=== PATIENT | female | born 1990 | race Caucasian/White ===

== ENCOUNTER 2022-05-19 14:09 | Emergency (ER) | payer BC, SELFPAY ==
[2022-05-19 14:26] VITALS: BP 118/87; PULSE 71; RESP 16; TEMP 36.6; O2SAT 97; BMI 34.8
--- NOTE | 2022-05-19 14:43 | ED.GENADULT ---
HPI - General Adult General Chief complaint: Jaw Injury/Pain Stated complaint: Post op jaw/throat pain Time Seen by Provider: 05/19/22 14:15 History of Present Illness HPI narrative: This 31-year-old female comes in with worsening dental pain in the left lower row. She had a tooth extracted 5 days ago and states that she was feeling better until yesterday. She wonders if there might be an infection. She states that she did not sleep well last night. She does not report any fevers. She has plans to follow-up with her dentist tomorrow. She took hydrocodone and ibuprofen without much relief today. Related Data Home Medications Medication Instructions Recorded Confirmed hydrocodone 5 mg-acetaminophen 325 tab 05/19/22 mg tablet Previous Rx's Medication Instructions Recorded amoxicillin 500 mg capsule 500 mg PO TID 10 days #30 caps 05/19/22 ketorolac 10 mg tablet 10 mg PO Q8H 5 days #15 tabs 05/19/22 tramadol 50 mg tablet 50 mg PO Q6H PRN pain #20 tabs 05/19/22 Allergies Allergy/AdvReac Type Severity Reaction Status Date / Time aspertame Allergy Severe nervous Uncoded 05/19/22 14:31 system reaction Review of Systems Status of ROS: Reports: 10 or more systems reviewed and unremarkable except as noted in History and below Narrative: Constitutional: No fevers, no weight gain or loss. Eyes: No discharge. No vision changes. HENT: No congestion, no sore throat. Left lower row dental pain that radiates to her left ear. Cardiovascular: No chest pain, no palpitations. Respiratory: No shortness of breath, no wheezes, no cough. Gastrointestinal: No abdominal pain, no vomiting, no diarrhea. Genitourinary: No dysuria, no hematuria. Musculoskeletal: Normal range of motion. Skin: No rashes, no pruritis. Neurological: No dizziness, weakness, sensory change, speech change. Endo/Heme/Allergies: No bruising or bleeding. No polydipsia. Pysch: no suicidality, no anxiety, no insomnia. All other systems reviewed and are negative. Exam Narrative: Exam Narrative: Constitutional: Well-developed, well-nourished, no acute distress. HEENT: Normocephalic, atraumatic. Left lower molar is extracted with no sign of bleeding or infection. Neck: Normal range of motion. Nontender. Supple. Heart: Intact distal pulses. Lungs: No chest discomfort. No wheezes, rhonchi, or rales. Abdomen: Nontender. Back: Normal range of motion. Extremities: Normal range of motion. No injury. Skin: Intact. No rash. Warm. No erythema or pallor. Neurologic: No altered sensation. No weakness. Alert and oriented. Psychiatric: No suicidality. No anxiety or depression. No insomnia. Nursing notes and vitals signs are reviewed. Const: Vital Signs, click to edit/add: Vital Signs - 24 hr 05/19/22 14:26 Temperature 97.8 F Pulse Rate [Left P ulse Oximeter] 71 Respiratory Rate 16 Blood Pressure [Ri ght Upper Arm] 118/87 Pulse Oximetry 97 Oxygen Delivery Me thod Room Air Course Vital Signs Vital signs: Initial Vital Signs Temperature 97.8 F 05/19/22 14:26 Temperature Source Temporal Artery Scan 05/19/22 14:26 Pulse Rate 71 05/19/22 14:26 Pulse Rhythm 05/19/22 14:26 Pulse Strength 3+ Normal 05/19/22 14:26 Respiratory Rate 16 05/19/22 14:26 Blood Pressure 118/87 05/19/22 14:26 Blood Pressure Mean 97 05/19/22 14:26 Blood Pressure Position Sitting 05/19/22 14:26 Pulse Oximetry 97 05/19/22 14:26 Oxygen Delivery Method 05/19/22 14:26 Vital Signs Temperature 97.8 F 05/19/22 14:26 Pulse Rate 71 05/19/22 14:26 Respiratory Rate 16 05/19/22 14:26 Blood Pressure 118/87 05/19/22 14:26 Pulse Oximetry 97 05/19/22 14:26 Oxygen Delivery Method 05/19/22 14:26 Temperature 97.8 F 05/19/22 14:26 Pulse Rate 71 05/19/22 14:26 Respiratory Rate 16 05/19/22 14:26 Blood Pressure 118/87 05/19/22 14:26 Pulse Oximetry 97 05/19/22 14:26 Oxygen Delivery Method 05/19/22 14:26 Medical Decision Making MDM Narrative Medical decision making narrative: This patient comes in with worsening dental pain after having an extraction 5 days ago. She states that she felt rather well and till around last evening and now her pain is not adequately controlled. I do not see sign of any abscess or infection however this is a possibility. I did prescribe amoxicillin for her along with some Toradol and tramadol. She also received an intramuscular injection of Toradol 30 mg. Discharge Plan Discharge Clinical Impression: Pain, dental Patient Disposition: Home, Self-Care Condition: Unchanged Instructions: Toothache (ED) Additional Instructions: Follow-up with dentist as soon as possible. Take medications as needed and indicated. Prescriptions: New amoxicillin 500 mg capsule 500 mg PO TID 10 Days Qty: 30 0RF tramadol 50 mg tablet 50 mg PO Q6H PRN (Reason: pain) Qty: 20 0RF ketorolac 10 mg tablet 10 mg PO Q8H 5 Days Qty: 15 0RF No Action hydrocodone-acetaminophen 5-325 mg tablet Label Comments: TAKE 1 TABLET BY MOUTH EVERY 6 HOURS FOR PAIN Follow Up/Referrals: Simba Black MD [Primary Care Provider] - Stand Alone Forms: [employer] Info Instructions
[2022-05-19] MEDS: KETOROLAC 30 MG/ML inj IM (14:57)
== END 2022-05-19 15:06 | disposition home or self-care (01) ==
PROVIDERS: Emergency Provider Emergency Medicine Emergency Medical Services; PCP Surgery
DX: R68.84 Jaw pain (principal)
CPT/HCPCS: 96372; 99283; 99284; J1885

== ENCOUNTER 2022-06-04 12:56 | Emergency (ER) | payer BC, SELFPAY ==
[2022-06-04 13:31] VITALS: BP 103/71; PULSE 91; RESP 16; TEMP 36.6; O2SAT 97; BMI 34.8
--- NOTE | 2022-06-04 16:08 | CRLHL7_ITS ---
For Patients: As a result of the Century Cures Act, medical imaging exams and procedure reports are released immediately into your electronic medical record. You may view this report before your referring provider. If you have questions, please contact your health care provider. INDICATION: Weakness COMPARISON: None TECHNIQUE: CT examination of the head was performed as axial sections without intravenous contrast. Images were obtained from the vertex of the skull through the skull base. Please note that all CT scans at this facility use dose modulation, iterative reconstruction, and/or weight-based dosing when appropriate to reduce radiation dose to as low as reasonably achievable. FINDINGS: The brain shows no sign of mass lesion, mass effect, hemorrhage, or edema. The ventricles and sulci are normal in appearance for the patient`s age. The visualized portions of the orbits are normal in appearance. The osseous structures are normal in their appearance with no sign of abnormality in the skull base or calvarium. IMPRESSION: Normal unenhanced head CT. Please note that all CT scans at this facility use dose modulation, iterative reconstruction, and/or weight-based dosing when appropriate to reduce radiation dose to as low as reasonably achievable. Dictated by Peng Goodman MD @ 06/04/2022 4:48:15 PM (Electronically Signed)
--- NOTE | 2022-06-04 16:08 | CRLHL7_ITS ---
For Patients: As a result of the Century Cures Act, medical imaging exams and procedure reports are released immediately into your electronic medical record. You may view this report before your referring provider. If you have questions, please contact your health care provider. INDICATION: Weakness COMPARISON: None TECHNIQUE: CT examination of the cervical spine is performed without contrast using spiral technique. Thin axial, sagittal and coronal reconstructions were made. Please note that all CT scans at this facility use dose modulation, iterative reconstruction, and/or weight-based dosing when appropriate to reduce radiation dose to as low as reasonably achievable. FINDINGS: : There is straightening of the spine which is usually due to muscle spasm, positioning or an immobilization device. The height of the vertebral bodies is normal. There is no narrowing of the intervertebral disc spaces. No appreciable facet or uncovertebral joint osteoarthritis. No significant visible disc disease though the mid and lower 3rd of the spine are poorly evaluated due to streak artifact and beam attenuation artifact from soft tissues. For ongoing concern about weakness related to the cervical spine, consider MRI. IMPRESSION: Straightening. No visible acute process. Please review the comment. Please note that all CT scans at this facility use dose modulation, iterative reconstruction, and/or weight-based dosing when appropriate to reduce radiation dose to as low as reasonably achievable. Dictated by Peng Goodman MD @ 06/04/2022 4:51:09 PM (Electronically Signed)
--- NOTE | 2022-06-04 16:09 | ED.NEUROSD ---
HPI - Neuro Symptoms/Deficit General Chief Complaint: Neuro Symptoms/Altered Deficit Stated Complaint: Right arm numb Time Seen by Provider: 06/04/22 16:18 History of Present Illness HPI Narrative: Pt is a 31 year old woman who presents with intermitant numbness and weakness in her right hand. This appears to be positional as she has been waking up with her entire right arm asleep for the past few weeks.This morning she was unable to get oly right arm moving for several minutes and now she has only 4/5 strength in the right hand. No specifiic fingers are weaker to her than others and she has had no fevers, chills or night sweats. Pt is currently working 4 jobs and admitts to a significant amount of stress in her life. She states that while answering the phone her arm often goes numb. No trauma. Symptoms generally resolve after a few minutes but today she feels more week in the right arm. Pain is minimal. No overt neck pain or headache. No other related symptoms. OTC meds not helpful. No history of chronic neck issues or nerve entrapment. Related Data Home Medications Medication Instructions Recorded Confirmed albuterol 90 mcg/actuation aerosol mcg inhalation .2 puff PRN 06/04/22 inhaler Allergies Allergy/AdvReac Type Severity Reaction Status Date / Time aspertame Allergy Severe nervous Uncoded 05/19/22 14:31 system reaction Review of Systems Status of ROS: Reports: 10 or more systems reviewed and unremarkable except as noted in History and below [facility] Medical History (Updated 06/04/22 @ 17:19 by Gareth Sharma MD) Active asthma Social History Smoking Status: Unknown if ever smoked Do you use any of these nicotine containing products: None Second hand tobacco smoke exposure: No How often do you have a drink containing alcohol: never How often do you have six or more drinks on one occasion: Never AUDIT-C Alcohol total score: 0 Non-prescribed substance use: denies use service: No Exam Narrative: Exam Narrative: EXAM GENERAL: Patient appears comfortable and well. EYES: No scleral icterus. THYROID: no thyroid nodules or thyromegaly. LYMPH: No supraclavicular or cervical lymphadenopathy. SKIN: Visible skin seen during exam normal or with benign process only. EXT: No dependent lower extremity pedal edema. HEART: Regular rate and rhythm with no murmurs, rubs, or gallops. LUNGS: Clear to auscultation bilaterally with no crackles or wheezes. ABD: Soft, non tender, non distended. PSYCH: Good eye contact, speech is not pressured. Neuro: CN 2-12 intact with no focal defects other than diffuse 4/5 strength in the right hand and arm. Refelexes intact no wrist drop. No numbness seen on exam Const: Vital Signs, click to edit/add: Vital Signs - 24 hr 06/04/22 13:31 Temperature 97.9 F Pulse Rate [Right Pulse Oximeter] 91 Respiratory Rate 16 Blood Pressure [Ri ght Upper Arm] 103/71 Pulse Oximetry 97 Oxygen Delivery Me thod Room Air Course Course Hospital Course: I believe pt has a nerve impingement. CT of head and cervical spine ordered. Considered CT angio head and neck but will forgo for now as diagnostic yield is likely low and symptoms not acute. Reevaluation(s) Reevaluation #1: Pt unchanged. Pt's CT's normal of head and neck. Exam unchanged. Time: 17:13 Vital Signs Vital signs: Initial Vital Signs Temperature 97.9 F 06/04/22 13:31 Temperature Source Temporal Artery Scan 06/04/22 13:31 Pulse Rate 91 06/04/22 13:31 Pulse Rhythm 06/04/22 13:31 Respiratory Rate 16 06/04/22 13:31 Blood Pressure 103/71 06/04/22 13:31 Blood Pressure Mean 81 06/04/22 13:31 Blood Pressure Position Sitting 06/04/22 13:31 Pulse Oximetry 97 06/04/22 13:31 Oxygen Delivery Method 06/04/22 13:31 Vital Signs Temperature 97.9 F 06/04/22 13:31 Pulse Rate 91 06/04/22 13:31 Respiratory Rate 16 06/04/22 13:31 Blood Pressure 103/71 06/04/22 13:31 Pulse Oximetry 97 06/04/22 13:31 Oxygen Delivery Method 06/04/22 13:31 Temperature 97.9 F 06/04/22 13:31 Pulse Rate 91 06/04/22 13:31 Respiratory Rate 16 06/04/22 13:31 Blood Pressure 103/71 06/04/22 13:31 Pulse Oximetry 97 06/04/22 13:31 Oxygen Delivery Method 06/04/22 13:31 MDM - Neuro Symptoms/Deficit MDM Narrative Medical decision making narrative: Pt presents with positional weakness, tingling and occasional dyscomfort of the right arm for the past several weeks. No [employer] symptoms. No other neurological findings. Imaging normal. No alarm systems and no fever. Pt has nerve impingement on exam and will be treated with Prednisone, Tylenol and PCP follow for possble PT/MRI Differential Diagnosis Differential diagnosis: Likely carpal tunnel syndrome, subarachnoid hemorrhage, peripheral neuropathy, cerebrovascular accident, multiple sclerosis and transient cerebral ischemia Discharge Plan Discharge Clinical Impression: Cervical radiculopathy Condition: Stable Instructions: Cervical Radiculopathy (ED) Additional Instructions: Prednisone as directed Tylenol Rest Follow up with Primary Physician Activity Level: Activity as Tolerated Discharge Diet: Regular Prescriptions: No Action albuterol 90 mcg/actuation aerosol inhalation .2 puff PRN Follow Up/Referrals: Simba Black MD [Primary Care Provider] - Stand Alone Forms: [employer] Info Instructions
== END 2022-06-04 17:27 | disposition home or self-care (01) ==
PROVIDERS: Emergency Provider Internal Medicine; PCP Surgery
DX: M54.12 Radiculopathy, cervical region (principal)
CPT/HCPCS: 70450; 72125; 99284

== ENCOUNTER 2022-11-19 08:30 | Emergency (ER) | payer BC, SELFPAY ==
[2022-11-19 08:40] VITALS: BP 114/70; PULSE 102; RESP 16; TEMP 36.5; O2SAT 99; BMI 34.8
--- NOTE | 2022-11-19 08:47 | CRLHL7_ITS ---
For Patients: As a result of the Cures Act, medical imaging exams and procedure reports are released immediately into your electronic medical record. You may view this report before your referring provider. If you have questions, please contact your health care provider. INDICATION: 31 year-old female. Crush injury this morning. Pain. COMPARISON: None. TECHNIQUE: Two views of the right femur from the hip to the knee. FINDINGS: The bones are anatomically aligned. There is no evidence of fracture, erosion or intrinsic bone lesion. The soft tissues appear normal. IMPRESSION: Negative right femur. Dictated by Amaury Montemayor MD @ 11/19/2022 9:46:58 AM (Electronically Signed)
--- NOTE | 2022-11-19 10:12 | ED_ITS ---
HPI - General Adult General Date Seen: 11/19/22 Chief complaint: Extremity Pain/Injury, Lower Stated complaint: Right leg injury Time Seen by Provider: 11/19/22 08:40 Source: patient Mode of arrival: ambulatory Limitations: no limitations History of Present Illness HPI narrative: Patient is a 31-year-old woman who is here for evaluation of a work related injury. She says her leg was caught between a Pallet and for cleft around 2:00 a.m. this morning. She says if she stands on it carefully she does not have pain but sometimes when she puts weight on it she has pain in her thigh and she want to make sure that she did not have a broken bone. She thinks is probably just bruised muscles. She has not noted significant swelling, no bruising. It is somewhat sore to touch. She also would like a note to be off of work today. Related Data Home Medications Medication Instructions Recorded Confirmed albuterol 90 mcg/actuation aerosol mcg inhalation .2 puff PRN 06/04/22 inhaler lorazepam 1 mg tablet mg 11/19/22 prednisone 10 mg tablet mg 11/19/22 Allergies Allergy/AdvReac Type Severity Reaction Status Date / Time aspertame Allergy Severe nervous Uncoded 05/19/22 14:31 system reaction Review of Systems Status of ROS: Reports: 6 or more systems reviewed and unremarkable except as noted in History and below [facility] Medical History Active asthma Social History Smoking Status: Current every day smoker Do you use any of these nicotine containing products: None Second hand tobacco smoke exposure: No How often do you have a drink containing alcohol: never How often do you have six or more drinks on one occasion: Never AUDIT-C Alcohol total score: 0 Non-prescribed substance use: denies use service: No Exam Narrative: Exam Narrative: Vital signs reviewed In general, an alert, nontoxic woman. She is sitting comfortably in the bed. Extremities: Examination of the right lower extremity shows no visible trauma. She has some tenderness to palpation of the thigh diffusely. There is no bruising, erythema, or swelling noted. She is able to range the right knee completely albeit slowly. There is no effusion. She has full range of motion of the hip. She was ambulatory. Distal CMS is normal. Compartments are soft. Skin: Warm and dry, well perfused, intact. Const: Vital Signs, click to edit/add: Vital Signs - 24 hr 11/19/22 08:40 Temperature 97.7 F Pulse Rate [Left P ulse Oximeter] 102 H Respiratory Rate 16 Blood Pressure [Le ft Upper Arm] 114/70 Pulse Oximetry 99 Oxygen Delivery Me thod Room Air Course Course Hospital Course: I did do x-rays of the right femur which by my review are negative for fracture or dislocation. Final radiology report is of a negative right femur. Discussed that her injuries are likely more muscular contusion. Would recommend ibuprofen and Tylenol, ice as needed. I did give her note to be off of work today to rest. Return tomorrow. Anticipate that this will improve over the next several days to week, primary care follow-up if not improving in that time frame. For severe pain, significant swelling or bruising, return for re-evaluation. Vital Signs Vital signs: Initial Vital Signs Temperature 97.7 F 11/19/22 08:40 Temperature Source Temporal Artery Scan 11/19/22 08:40 Pulse Rate 102 H 11/19/22 08:40 Pulse Rhythm 11/19/22 08:40 Pulse Strength 3+ Normal 11/19/22 08:40 Respiratory Rate 16 11/19/22 08:40 Blood Pressure 114/70 11/19/22 08:40 Blood Pressure Mean 84 11/19/22 08:40 Blood Pressure Position Sitting 11/19/22 08:40 Pulse Oximetry 99 11/19/22 08:40 Oxygen Delivery Method 11/19/22 08:40 Vital Signs Temperature 97.7 F 11/19/22 08:40 Pulse Rate 102 H 11/19/22 08:40 Respiratory Rate 16 11/19/22 08:40 Blood Pressure 114/70 11/19/22 08:40 Pulse Oximetry 99 11/19/22 08:40 Oxygen Delivery Method 11/19/22 08:40 Temperature 97.7 F 11/19/22 08:40 Pulse Rate 102 H 11/19/22 08:40 Respiratory Rate 16 11/19/22 08:40 Blood Pressure 114/70 11/19/22 08:40 Pulse Oximetry 99 11/19/22 08:40 Oxygen Delivery Method 11/19/22 08:40 Discharge Plan Discharge Clinical Impression: Injury of right thigh Patient Disposition: Home, Self-Care Condition: Stable Instructions: Crush Injury (ED) Additional Instructions: Ibuprofen 400 mg plus Tylenol 1000 mg 3 times daily as needed for pain. Ice. Off work today to rest. Symptoms should improve over the next week. See primary care if not improving in that time frame. If you have worsening or severe pain, significant swelling or bruising, return for re-evaluation. Prescriptions: No Action albuterol 90 mcg/actuation aerosol inhalation .2 puff PRN prednisone 10 mg tablet lorazepam 1 mg tablet Label Comments: TAKE ONE-HALF TABLET BY MOUTH 30 MINUTES PRIOR TO EMG. CAN TAKE 2ND HALF JUST PRIOR TO EMG IF NOT GROGGY Follow Up/Referrals: Simba Black MD [Primary Care Provider] - Stand Alone Forms: [employer] Info Instructions
== END 2022-11-19 09:45 | disposition home or self-care (01) ==
PROVIDERS: Emergency Provider Emergency Medicine; PCP Surgery
DX: S79.921A Unspecified injury of right thigh, initial encounter (principal); W23.1XXA Caught, crushed, jammed, or pinched between stationary objects, initial encounter; Y99.0 Civilian activity done for income or pay
CPT/HCPCS: 73552; 99283

== ENCOUNTER 2022-11-28 14:00 | Outpatient (RCR) | payer BC, SELFPAY | END 2023-04-10 23:59 | disposition home or self-care (01) | PROVIDERS: PCP Surgery; Visit Provider Family Medicine | DX: M54.2 Cervicalgia (principal); M79.601 Pain in right arm; M54.9 Dorsalgia, unspecified; Z51.89 Encounter for other specified aftercare | CPT/HCPCS: 97012; 97110; 97140; 97162 ==

== ENCOUNTER 2023-01-23 08:54 | Emergency (ER) | payer BC, SELFPAY ==
[2023-01-23 09:02] VITALS: BP 111/67; PULSE 69; RESP 18; TEMP 36.6; O2SAT 98; BMI 36.0
--- NOTE | 2023-01-23 09:15 | ED.ABDPAIN ---
HPI - Abdominal Pain General Time Seen by Provider: 09:16 Date Seen: 01/23/23 Chief Complaint: Abdominal Pain Stated Complaint: sharp pain in lower abdomen, 5 weeks Time Seen by Provider: 01/23/23 09:15 Source: patient and RN notes reviewed Mode of arrival: ambulatory Limitations: no limitations History of Present Illness HPI narrative: Patient is a 32-year-old female coming in with abdominal pain. She states her last menstrual period was December 12, she calculates she has about 5 and half weeks . She has had no vaginal discharge or bleeding. Yesterday morning she started having some dull aching in the right lower quadrant, worsens with movement or bending over and is felt as a sharp stabbing. With rest she feels better. She has not taken any Tylenol, she tries to minimize medication use particularly early in . She is most comfortable resting. She has maybe noticed some increased urination but no dysuria. She has been trying to drink more since she found out she was . This would be her 5th , her 1st 2 children were pre term deliveries. She has had no abdominal surgeries. There is no change with eating. No fevers, no nausea vomiting or diarrhea. MD elicited complaint: abdominal pain Onset (ago): day(s) (started yesterday morning) Pain Consistency: intermittent Location: RLQ Quality: stabbing (With movement) and aching Radiation: none Exacerbating factors: movement Relieving factors: rest Related Data Date of last menstrual period: 01/23/23 Patient : Yes Home Medications Medication Instructions Recorded Confirmed albuterol 90 mcg/actuation aerosol 1 mcg inhalation .2 puff PRN 06/04/22 01/23/23 inhaler vit no.95-ferrous 1 tab PO DAILY 01/23/23 01/23/23 fumarate 28 mg-folic acid 800 mcg tablet () Allergies Allergy/AdvReac Type Severity Reaction Status Date / Time aspertame Allergy Severe nervous Uncoded 05/19/22 14:31 system reaction Review of Systems Status of ROS Reports: 6 or more systems reviewed and unremarkable except as noted in History and below [facility] Medical History Active asthma Social History Smoking Status: Former smoker What tobacco products do you use: cigarettes Smoking quit date/years: <= 15 years ago Do you use any of these nicotine containing products: None Second hand tobacco smoke exposure: No How often do you have a drink containing alcohol: never How often do you have six or more drinks on one occasion: Never AUDIT-C Alcohol total score: 0 Non-prescribed substance use: denies use service: No Exam Const: Vital Signs, click to edit/add: Vital Signs - 24 hr 01/23/23 09:02 01/23/23 11:21 01/23/23 13:25 Temperature 97.9 F 98.4 F 98.0 F Pulse Rate [Pulse Oximeter] 69 61 64 Respiratory Rate 18 16 16 Blood Pressure [Ri ght Upper Arm] 111/67 102/68 110/69 Pulse Oximetry 98 98 97 Oxygen Delivery Me thod Room Air Room Air Room Air Documenting provider has reviewed patient's vital signs: yes Common normals: no apparent distress, average body habitus, oriented x3, no limitations, healthy appearing and alert General appearance: cooperative, comfortable (While lying in the ER bed), well kempt and well developed HENMT: Common normals: normocephalic, head/scalp atraumatic, hearing grossly normal bilaterally and external nose normal Head and scalp: normocephalic and atraumatic Nose: external nose normal Mouth: lip normal Eye: Common normals: PERRL, EOMs intact bilaterally, conjunctivae normal and no scleral icterus Conjunctiva: conjunctiva(e) normal Pupil: PERRL Neck & C-Spine: Common normals: full ROM, no lymphadenopathy, supple, no meningeal signs, no JVD and thyroid normal Thyroid: thyroid normal Resp: Common normals: normal respiratory effort, no retractions, no use of accessory muscles and clear to auscultation bilaterally Auscultation: clear to auscultation bilaterally Cardio: Common normals: no JVD, regular rate, regular rhythm, S1 normal heart sound, S2 normal heart sound, no gallops, no clicks and no murmurs Rate: regular rate Rhythm: regular rhythm Heart sounds: S1 normal and S2 normal GI: Common normals: Normal to inspection, nondistended, normoactive bowel sounds present, soft to palpation, no hepatosplenomegaly and no masses Palpation: soft and no hepatosplenomegaly Other: Does have mild right lower quadrant tenderness without any true rebound or guarding. Back & Pelvis: Common normals: thoracic and lumbar spine normal to inspection Extremity: Common normals: normal to inspection Neuro: Common normals: oriented x3 Sensorium/orientation: alert Meningeal signs: no meningeal signs Psych: Appearance: well kempt Course Course Hospital Course: Patient will have a pelvic ultrasound to start. We reviewed need to confirm intrauterine , rule out ectopic . It is possible this could be an atypical presentation of such things as appendicitis. We will see what can be visualized on the ultrasound. Will also get a full complement of labs. Patient does not want anything for pain management at this time. She did bring up if everything is normal, she wondered if she could have a note to just rest the remainder of the week and stay home. I do think we certainly can consider that. She has her initial OB appointment coming up in 2 weeks time. She is scheduled to have an ultrasound at that time. She obviously will be having 1 today but may still need follow-up ultrasound if symptomatic. Reevaluation(s) Reevaluation #1: Reviewed with patient her MRI showing a normal appendix. Will give her note to be out of work for the remainder of the week, discharged to home for further outpatient follow-up. Time: 13:53 Consultations Consultation #1: Reviewed with our surgeon Dr. Brewer. We will do a lab add on for a CRP, obtain MRI of her abdomen. Have conferred with the radiologist Dr. Delgado and a plain noncontrast MRI of her abdomen should be sufficient. Patient has been informed of the plan for the MRI of her abdomen to further delineate whether or not there might be appendicitis. She is aware that there is an intrauterine which is very reassuring. Time: 11:28 Vital Signs Vital signs: Initial Vital Signs Temperature 97.9 F 01/23/23 09:02 Temperature Source Temporal Artery Scan 01/23/23 09:02 Pulse Rate 69 01/23/23 09:02 Respiratory Rate 18 01/23/23 09:02 Blood Pressure 111/67 01/23/23 09:02 Blood Pressure Mean 81 01/23/23 09:02 Blood Pressure Position Sitting 01/23/23 09:02 Pulse Oximetry 98 01/23/23 09:02 Oxygen Delivery Method Room Air 01/23/23 09:02 Vital Signs Temperature 97.9 F 01/23/23 09:02 Pulse Rate 69 01/23/23 09:02 Respiratory Rate 18 01/23/23 09:02 Blood Pressure 111/67 01/23/23 09:02 Pulse Oximetry 98 01/23/23 09:02 Oxygen Delivery Method Room Air 01/23/23 09:02 Temperature 98.0 F 01/23/23 13:25 Pulse Rate 64 01/23/23 13:25 Respiratory Rate 16 01/23/23 13:25 Blood Pressure 110/69 01/23/23 13:25 Pulse Oximetry 97 01/23/23 13:25 Oxygen Delivery Method Room Air 01/23/23 13:25 MDM - Abdominal Pain Differential Diagnosis Differential diagnosis: Likely abdominal pain and acute appendicitis Lab Data Attestation: I reviewed the patient's lab results. Labs: Lab Results 01/23/23 01/23/23 Range/Units 09:43 09:45 WBC 6.12 (4.50-11.00) K/uL RBC 4.23 (4.00-5.20) m/uL Hgb 12.7 (12.0-16.0) gm/dL Hct 38.1 (33.0-51.0) % MCV 90 (80-100) fL MCH 30 (26-34) pg MCHC 33 (32-36) gm/dL RDW Coeff of Ant 12.3 (11.5-15.5) % Plt Count 197 (140-440) K/uL Neut % (Auto) 65.1 (42.0-72.0) % Lymph % (Auto) 26.1 (20-44) % Nelson % (Auto) 7.0 (0.0-11.0) % Eos % (Auto) 1.3 (0.0-7.0) % Baso % (Auto) 0.5 (0.0-3.0) % Neut # (Auto) 3.98 (1.7-7.0) K/uL Lymph # (Auto) 1.60 (0.90-2.90) K/uL Nelson # (Auto) 0.40 (0.00-0.90) K/UL Eos # (Auto) 0.08 (0.00-0.50) K/uL Baso # (Auto) 0.03 (0.00-0.30) K/uL Sodium 135 (135-149) mmol/L Potassium 4.0 (3.6-5.1) mmol/L Chloride 107 (96-114) mmol/L Carbon Dioxide 23 (20-32) mmol/L BUN 11 (5-24) mg/dL Creatinine 0.5 (0.5-1.5) mg/dL Estimated Creat Clear 127.76 Estimated GFR 128 ml/min Glucose 92 (60-115) mg/dL Lactate 0.7 (0.5-1.9) mmol/L Calcium 8.6 (8.4-10.6) mg/dL Total Bilirubin 0.4 (0.1-1.5) mg/dL AST 34 (12-35) U/L ALT 46 H (4-35) U/L Alkaline Phosphatase 64 (40-150) U/L C-Reactive Protein 0.7 (0.5-1.0) mg/dL Total Protein 6.9 (6.0-8.3) g/dL Albumin 3.9 (3.3-5.0) g/dL HCG, Quant 37597.00 mIU/mL Urine Color Yellow (Yellow) Urine Appearance Clear (Clear) Urine pH 8.0 (5.0-8.5) Ur Specific Roggen 1.015 (1.000-1.030) Urine Protein Negative (Negative) Urine Glucose (UA) Negative (Negative) Urine Ketones Negative (Negative) Urine Blood Negative (Negative) Urine Nitrite Negative (Negative) Urine Bilirubin Negative (Negative) Urine Urobilinogen 0.2 (0.2-1.0) Ur Leukocyte Esterase Negative (Negative) Urine RBC 0-2 (0-2) Urine WBC 0-2 (0-5) Ur Squamous Epith Cells Few (None-Few) Urine Bacteria Few A (None) Imaging Data US pelvis: Attestation: I have reviewed the pertinent imaging results. Radiologist's impression: Patient: DENISE ROMERO Facility:?[facility] Patient ID:?[id number] Site Patient ID:?[id number]. Site :?[id number] Study:?US OB Pelvis-01/23/2023 10:30:38 AM Ordering Physician:Sho Andrews Final Report: Indication: Right lower quadrant abdominal pain Technique: Sonography the gravid uterus was performed. The study was performed transabdominally and transvaginally. Comparison: None Findings: There is a single live intrauterine . The crown rump length measurement is 3 millimeters corresponding to 6 weeks and 0 days. The estimated date of delivery is 09/18/2023. heart rate is 103 beats per minute which is considered normal for a 3 millimeter pole. The gestational sac appears normal at 1.4 centimeters. A normal appearing yolk sac is noted at 3 millimeters. The ovaries are normal in size. The right ovary measures 3.6 x 2.1 x 2.2 centimeters and the left ovary measures 3.2 x 1.2 x 1.9 centimeters. There is a corpus luteum cyst of on the right. Informally, the technologist states that there may be marginal visualization of a segment of the appendix measuring 7 millimeters. If this is confirmed, greater than 6 millimeters is abnormal. Recommend a formal study of the right lower quadrant for further formal evaluation Impression: 1. There is a single live intrauterine gestation at 6 weeks and 0 days with an estimated date of delivery of 09/18/2023. No visible complication of the . 2. Questionable marginal visualization of an abnormal appendix. Recommend a formal study of the right lower quadrant for further formal evaluation Dictated by Peng Goodman MD @ 01/23/2023 10:49:09 AM (Electronic Signature) MRI - abdomen: Attestation: I have reviewed the pertinent imaging results. Radiologist's impression: Patient: DENISE ROMERO Facility:?[facility] Patient ID:?[id number] Site Patient ID:?[id number]. Site :?[id number] Study:?MRI Pelvis W/O PREG APPY-01/23/2023 12:27:28 PM Ordering Physician:?Digna Andrews Final Report: Indication: Right lower quadrant pain, patient. Technique: Multisequence multiplanar MRI of the abdomen and pelvis without IV contrast. Comparison: None. Findings: Appendix is normal in caliber. No periappendiceal inflammatory changes. Visualized portions of the inferior liver parenchyma are unremarkable. The gallbladder and visualized portions of the pancreas, inferior spleen, and adrenal glands are unremarkable. No hydronephrosis of the kidneys bilaterally. No retroperitoneal lymphadenopathy. Visualized bowel is not dilated, no evidence of bowel obstruction. No significant ascites. Bladder is unremarkable for degree of distension. Small intrauterine cystic structure, compatible with a gestational sac. pole is not visualized by MRI. Trace pelvic free fluid. No lymphadenopathy. No suspicious aggressive appearing focal osseous lesion is identified. Impression: 1. Normal appendix. No evidence of acute appendicitis. 2. Small intrauterine cystic structure, compatible with a gestational sac. pole is not visualized by MRI at this time. Trace pelvic free fluid. Dictated by Clifton Aguayo MD @ 01/23/2023 1:29:08 PM (Electronic Signature) Critical Care Time Critical Care Time Critical Care Time: No Discharge Plan Discharge Clinical Impression: Abdominal pain, right lower quadrant, Intrauterine Patient Disposition: Home, Self-Care Condition: Stable Instructions: at 7 to 10 Weeks (ED) Additional Instructions: Keep upcoming obstetrical appointment. Recommend rest, activities as tolerated. You certainly can use Tylenol if needed for some discomfort. If you have significant increasing your abdominal pain, develops fever, any vaginal leaking bleeding or vomiting, do need to be re-evaluated. Prescriptions: No Action PNV cmb#95-ferrous fumarate-FA [] 28 mg iron- 800 mcg tablet 1 tab PO DAILY albuterol 90 mcg/actuation aerosol 1 mcg inhalation .2 puff PRN Follow Up/Referrals: Simba Black MD [Primary Care Provider] - Stand Alone Forms: [employer] Info Instructions
--- NOTE | 2023-01-23 09:21 | CRLHL7_ITS ---
For Patients: As a result of the Century Cures Act, medical imaging exams and procedure reports are released immediately into your electronic medical record. You may view this report before your referring provider. If you have questions, please contact your health care provider. Indication: Right lower quadrant abdominal pain Technique: Sonography the gravid uterus was performed. The study was performed transabdominally and transvaginally. Comparison: None Findings: There is a single live intrauterine . The crown rump length measurement is 3 millimeters corresponding to 6 weeks and 0 days. The estimated date of delivery is 09/18/2023. heart rate is 103 beats per minute which is considered normal for a 3 millimeter pole. The gestational sac appears normal at 1.4 centimeters. A normal appearing yolk sac is noted at 3 millimeters. The ovaries are normal in size. The right ovary measures 3.6 x 2.1 x 2.2 centimeters and the left ovary measures 3.2 x 1.2 x 1.9 centimeters. There is a corpus luteum cyst of on the right. Informally, the technologist states that there may be marginal visualization of a segment of the appendix measuring 7 millimeters. If this is confirmed, greater than 6 millimeters is abnormal. Recommend a formal study of the right lower quadrant for further formal evaluation Impression: 1. There is a single live intrauterine gestation at 6 weeks and 0 days with an estimated date of delivery of 09/18/2023. No visible complication of the . 2. Questionable marginal visualization of an abnormal appendix. Recommend a formal study of the right lower quadrant for further formal evaluation Dictated by Peng Goodman MD @ 01/23/2023 10:49:09 AM (Electronically Signed)
[2023-01-23 09:47] LABS: Lactate* 0.7 mmol/L (0.5-1.9)
[2023-01-23 09:48] LABS: Basophils Absolute Auto 0.03 K/uL (0.00-0.30); Basophils Percent Auto 0.5 % (0.0-3.0); Eosinophils Absolute Auto 0.08 K/uL (0.00-0.50); Eosinophils Percent Auto 1.3 % (0.0-7.0); Hematocrit 38.1 % (33.0-51.0); Hemoglobin* 12.7 gm/dL (12.0-16.0); Lymphocytes Percent Auto 26.1 % (20-44); Mean Corpuscular HGB Conc 33 gm/dL (32-36); Mean Corpuscular Hemoglobin 30 pg (26-34); Mean Corpuscular Volume 90 fL (80-100); Neutrophils Absolute Auto 3.98 K/uL (1.7-7.0); Neutrophils Percent Auto 65.1 % (42.0-72.0); Platelet Count* 197 K/uL (140-440); RDW Coefficient of Variation % 12.3 % (11.5-15.5); Red Blood Count 4.23 m/uL (4.00-5.20); White Blood Count* 6.12 K/uL (4.50-11.00)
[2023-01-23 09:54] LABS: Slide Review Reflex No
[2023-01-23 10:05] LABS: Appearance Urine Clear (Clear); Bilirubin Urine Negative (Negative); Blood Urine Negative (Negative); Color Urine Yellow (Yellow); Glucose Urine Negative (Negative); Ketones Urine Negative (Negative); Leukocyte Esterase Urine Negative (Negative); Nitrite Urine Negative (Negative); Protein Urine Negative (Negative); Specific Gravity Urine 1.015 (1.000-1.030); Urobilinogen Urine 0.2 (0.2-1.0)
[2023-01-23 10:06] LABS: Albumin* 3.9 g/dL (3.3-5.0); Chloride* 107 mmol/L (96-114); Sodium* 135 mmol/L (135-149)
[2023-01-23 10:08] LABS: Bilirubin Total* 0.4 mg/dL (0.1-1.5); Creatinine* 0.5 mg/dL (0.5-1.5); Est. Creatinine Clearance* 127.76; Estimated Glomerular Filt Rate 128 ml/min
[2023-01-23 10:09] LABS: Alanine Aminotransferase* 46 U/L (4-35); Alkaline Phosphatase* 64 U/L (40-150); Aspartate Amino Transferase* 34 U/L (12-35); Blood Urea Nitrogen* 11 mg/dL (5-24); Calcium* 8.6 mg/dL (8.4-10.6); Carbon Dioxide* 23 mmol/L (20-32); Glucose* 92 mg/dL (60-115); Total Protein* 6.9 g/dL (6.0-8.3)
[2023-01-23 10:26] LABS: Bacteria Urine Few; RBC Urine 0-2 (0-2); Squamous Epithelial Cell Urine Few (None-Few); WBC Urine 0-2 (0-5)
[2023-01-23 11:21] VITALS: BP 102/68; PULSE 61; RESP 16; TEMP 36.9; O2SAT 98
--- NOTE | 2023-01-23 11:30 | CRLHL7_ITS ---
For Patients: As a result of the Cures Act, medical imaging exams and procedure reports are released immediately into your electronic medical record. You may view this report before your referring provider. If you have questions, please contact your health care provider. Indication: Right lower quadrant pain, patient. Technique: Multisequence multiplanar MRI of the abdomen and pelvis without IV contrast. Comparison: None. Findings: Appendix is normal in caliber. No periappendiceal inflammatory changes. Visualized portions of the inferior liver parenchyma are unremarkable. The gallbladder and visualized portions of the pancreas, inferior spleen, and adrenal glands are unremarkable. No hydronephrosis of the kidneys bilaterally. No retroperitoneal lymphadenopathy. Visualized bowel is not dilated, no evidence of bowel obstruction. No significant ascites. Bladder is unremarkable for degree of distension. Small intrauterine cystic structure, compatible with a gestational sac. pole is not visualized by MRI. Trace pelvic free fluid. No lymphadenopathy. No suspicious aggressive appearing focal osseous lesion is identified. Impression: 1. Normal appendix. No evidence of acute appendicitis. 2. Small intrauterine cystic structure, compatible with a gestational sac. pole is not visualized by MRI at this time. Trace pelvic free fluid. Dictated by Clifton Aguayo MD @ 01/23/2023 1:29:08 PM (Electronically Signed)
[2023-01-23 11:44] LABS: C Reactive Protein* 0.7 mg/dL (0.5-1.0)
[2023-01-23 13:25] VITALS: BP 110/69; PULSE 64; RESP 16; TEMP 36.7; O2SAT 97
== END 2023-01-23 14:05 | disposition home or self-care (01) ==
PROVIDERS: Emergency Provider Family Medicine; PCP Surgery
DX: R10.31 Right lower quadrant pain (principal); Z33.1 Pregnant state, incidental
CPT/HCPCS: 36415; 74181; 76817; 76857; 80053; 81001; 83605; 84702; 85025; 86140; 87086; 99284; 99285

== ENCOUNTER 2023-08-20 20:10 | Outpatient (CLI) | payer BC, SELFPAY ==
[2023-08-20 21:06] VITALS: BP 110/60; PULSE 99
[2023-08-20 21:07] LABS: Appearance Urine Slightly Cloudy (Clear); Bilirubin Urine Negative (Negative); Blood Urine Negative (Negative); Color Urine Yellow (Yellow); Glucose Urine Negative (Negative); Ketones Urine Negative (Negative); Leukocyte Esterase Urine Trace (Negative); Nitrite Urine Negative (Negative); Protein Urine Negative (Negative); Urobilinogen Urine 0.2 (0.2-1.0); pH Urine 6.5 (5.0-8.5)
[2023-08-20 21:11] VITALS: RESP 16; TEMP 36.7
[2023-08-20 21:53] LABS: Clue Cells <20% Clue Cells Seen (None Seen); Trichomonas No Trichomonas Seen (None Seen); Yeast No Yeast Seen (None Seen)
[2023-08-20 22:01] LABS: Amorphous Sediment Urine Few; Bacteria Urine Few; Squamous Epithelial Cell Urine Few (None-Few)
[2023-08-20 22:02] LABS: Mucus Urine Few
--- NOTE | 2023-08-20 22:33 | PC.OBNST ---
NST Note NST Note Start: 08/20/23 20:19 Freq: ONCE Status: Active Protocol: Document 08/20/23 22:31 BARNEY (Rec: 08/20/23 22:33 BARNEY [id number]) NST Note 5 Para (# of births) 4 EDC 09/21/23 Gestational Age In Weeks & Days 35 Weeks & 3 Days High Risk Factors Diabetes - Preexisting Type I Insulin Patient Presented with Complaint(s) of Pain If Pain, describe location vaginal pressure Reactive Yes Appropriate for Gestational Age Yes RADHA Perry RNC Date 08/20/23 Reactive Yes Appropriate for Gestational Age Yes RADHA Castillo RNC Date 08/20/23 OB NST charge Yes Complete NST Note via Write Note Yes The provider's electronic signature indicates the NST is reactive/appropriate for gestational age. *Note to provider: If an addendum is required, open the patient's chart and click on the note under the Nurse/Allied Health tab.
[2023-08-21 19:49] LABS: Strep B DNA Probe Positive (Negative)
[2023-08-21 19:50] LABS: Strep B Susceptibility Needed? No
== END 2023-08-20 22:40 | disposition home or self-care (01) ==
LOC: OB OUT 20:12 → OB 20:16
PROVIDERS: PCP Surgery; Visit Provider Family Medicine
DX: O24.313 Unspecified pre-existing diabetes mellitus in pregnancy, third trimester (principal); Z3A.35 35 weeks gestation of pregnancy
CPT/HCPCS: 59025; 81003; 81015; 87081; 87086; 87210; 87653; 99213

== ENCOUNTER 2023-09-09 19:32 | Inpatient (IN) | payer BC, SELFPAY ==
[2023-09-09 19:43] VITALS: BMI 44.8
[2023-09-09 19:59] VITALS: BP 118/76; PULSE 111; TEMP 36.7
[2023-09-09 20:00] VITALS: PULSE 207; O2SAT 97
[2023-09-09 20:35] LABS: Basophils Absolute Auto 0.02 K/uL (0.00-0.30); Basophils Percent Auto 0.2 % (0.0-3.0); Eosinophils Percent Auto 1.1 % (0.0-7.0); Hematocrit 33.7 % (33.0-51.0); Hemoglobin* 10.9 gm/dL (12.0-16.0); Immature Granulocytes Abs Auto 0.03 K/uL (0.00-0.30); Immature Granulocytes Pct Auto 0.3 %; Lymphocytes Percent Auto 16.9 % (20-44); Mean Corpuscular HGB Conc 32 gm/dL (32-36); Mean Corpuscular Hemoglobin 28 pg (26-34); Mean Corpuscular Volume 86 fL (80-100); Monocytes Percent Auto 5.7 % (0.0-11.0); Neutrophils Percent Auto 75.8 % (42.0-72.0); Platelet Count* 213 K/uL (140-440); RDW Coefficient of Variation % 13.5 % (11.5-15.5); Red Blood Count 3.91 m/uL (4.00-5.20)
[2023-09-09 20:36] LABS: Slide Review Reflex No
[2023-09-09] MEDS: miSOPROStoL 25 MCG/0.25 TABLET VAGINAL (21:02)
--- NOTE | 2023-09-09 22:18 | P.OBHP_ITS ---
OB - H&P: HPI Labor/Induction History of Present Illness Date Seen: 09/09/23 Chief Complaint: The patient is a 32 year old 5 para 4 at 38 weeks 2 days gestation by LMP and 1st trimester ultrasound, who presents for induction secondary to uncontrolled gestational diabetes. Chief complaint: Maternity : 5 Para: 4 Narrative: Shawanda Christopher is a 32 year old female here for induction. She has a history of delivery and was recommended to start vaginal progesterone early in but was not able to afford it. She was diagnosed with gestational diabetes in and was initially diet controlled but did require starting NPH insulin and increasing slowly. She was controlled for a couple weeks, monitoring blood sugars closely. However, she did have multiple episodes of vomiting and sweating overnight at 30 units of insulin. She reduced the dose and those symptoms resolved. Her blood sugars were not controlled at this point over the last 5 days. Fasting sugars were in the low 100s. Later sugars were generally in range but she did have an occasional sugar in the 180s. Perinatology was consulted and it was decided to induce for uncontrolled gestational diabetes. She did have a growth ultrasound at 35 weeks with estimated weight of 3061 g. She has been getting twice weekly NST/BPP that were all normal since 34 weeks when she started insulin. History of Present Dating criteria: based on LMP care: good care Ultrasounds: normal 1st trimester US and normal mid trimester US complications: gestational diabetes Labs Blood type: O (+) positive Rubella: immune RPR/VDLR: nonreactive GBS status: positive HBsAG: negative Review of Systems Status of ROS: Reports: 10 or more systems reviewed and unremarkable except as noted in History and below Meds Home Medications and Allergies Home Medications Medication Instructions Recorded Confirmed Type albuterol 90 mcg/actuation aerosol 1 mcg inhalation .2 puff PRN 06/04/22 09/09/23 History inhaler vit no.95-ferrous 1 tab PO DAILY 01/23/23 09/09/23 History fumarate 28 mg-folic acid 800 mcg tablet () blood sugar diagnostic (Contour 08/20/23 08/20/23 History Next Test Strips) blood-glucose meter (Contour Next 08/20/23 08/20/23 History One Meter) blood-glucose sensor (FreeStyle 08/20/23 08/20/23 History Evaristo 3 Sensor device) insulin NPH isoph U-100 human 100 unit subcut 08/20/23 History unit/mL subcutaneous suspension (Novolin N NPH U-100 Insulin isophane) insulin syringe-needle U-100 0.3 08/20/23 08/20/23 History mL 31 gauge x 5/16 lancets (Microlet Lancet) 08/20/23 08/20/23 History Allergies Allergy/AdvReac Type Severity Reaction Status Date / Time aspartame Allergy Severe Shuts Down Verified 09/09/23 21:01 Nervous System OB - H&P: Exam Physical Exam: Vital signs: Pulse BP Pulse Ox 111 H 118/76 97 09/09/23 19:59 09/09/23 19:59 09/09/23 20:00 Constitutional: Constitutional: no acute distress Routine Respiratory Exam: Respiratory: Present CTA bilaterally Routine Cardiovascular Exam: Cardiovascular: RRR Detailed Labor and Delivery Exam: Patient Gravid: Yes Dilation (cm): 0 Cervix position: posterior Consistency: medium Cervical ripeness score: 1 OB - Results Labs Labs: Short CBC 09/09/23 Range/Units 20:24 WBC 9.50 (4.50-11.00) K/uL Hgb 10.9 L (12.0-16.0) gm/dL Hct 33.7 (33.0-51.0) % Plt Count 213 (140-440) K/uL OB - Problem Based A/P Additional Plan (1) Gestational diabetes: Status: Acute (2) Positive GBS test: Status: Acute Plan Will induce for uncontrolled gestational diabetes. Dicsussed risks with mom of baby being born early. Discussed risks of shoulder dystocia. Discussed repeating growth ultrasound but since this showed 3000 g less than 3 weeks ago, it would be very unlikely to foreign exchange student coordinator today as primary would only be offered if EFW > 4500g. Patient desires to proceed with induction. Will do lower dose of NPH at 16 units tonight and then plan to start insulin drip to keep sugars in range during labor per protocol. GBS positive so will start ampicillin when labor starts. Expect transition to pitocin when cervix is favorable. Anticipate . Delivery/Labor/Induction Plan Plan: induction Induction method: per misoprostol protocol
[2023-09-09] MEDS: INSULIN NPH 100 UNIT/ML 16 UNIT SUBCUT (23:15)
[2023-09-10] VITALS (37 sets, daily range): BP systolic 107–172; BP diastolic 58–86; PULSE 68–116; RESP 16–18; TEMP 36.6–36.9; O2SAT 97–100
[2023-09-10] MEDS: miSOPROStoL 25 MCG/0.25 TABLET VAGINAL ×3 (00:59→09:00)
[2023-09-10] MEDS: INSULIN ASPART 100 UNIT/ML SUBCUT (01:31)
--- NOTE | 2023-09-10 08:13 | PM.OBPNL ---
Subjective Date Seen: 09/10/23 Narrative: 3 doses of Cytotec overnight. Not really feeling contractions yet. 1 sugar overnight out of range at 129. 2 units of Novolog given. Morning sugar has been in range. Objective Exam: Baby cephalic by Brenda. Vital Signs: Last Vital Signs Temp 98.3 F 09/10/23 05:08 Pulse 93 09/10/23 05:08 Resp 16 09/10/23 05:08 BP 115/63 09/10/23 05:08 Pulse Ox 97 09/09/23 20:00 Pelvic Exam Comments: Exam deferred until next Cytotec dose Contractions Monitor mode: External Contraction pattern: Absent Assessment Assessment: induction ongoing Status: Category l Heart Rate Baseline: 140 Manager It Training Variability: Moderate (6-25) Monitor Accelerations: Present Monitor Decelerations: None Plan Plan: Plan 2 more doses of Cytotec unless she goes into active labor. Can do a dose of Cervidil if no significant response at that time. Diabetic diet per protocol. Will treat any sugars out of range on an as needed basis. Continue induction for uncontrolled gestational diabetes.
[2023-09-10] MEDS: LACTATED RINGERS 1000 ML 1,000 ML 125 ML IV (13:23)
[2023-09-10] MEDS: AMPICILLIN 2 GM in 0.9 % SODIUM CHLORIDE Mini-bag 100 ML IVPB (13:25)
[2023-09-10] MEDS: ROPIVACAINE 0.2% 100 ml 100 ML 12 MG EPIDURAL (14:35)
[2023-09-10] MEDS: OXYTOCIN 30 unit/500 ML in NS 30 UNIT/500 ML BAG 300 UNIT IVPB (15:07)
--- NOTE | 2023-09-10 16:12 | W.PM.VAGDEL1 ---
Procedure Procedure Done: [facility] Global Procedure Details: 1st stage of labor: Patient admitted for induction for uncontrolled gestational diabetes. Cytotec per protocol for 4 doses given. Found to be 4 cm at 1342 and laura regularly prior to 5th dose. Ampicillin started for GBS positivity as soon as painful contractions started. Sugars were all in range during 1st stage of labor except 1 slightly high sugar of 129 overnight. 2 units of Novolog given. Strip was category 1 through the first stage of labor. She was found to be complete at 1454. She had SROM of clear fluid at that time. 2nd stage of labor: Patient began pushing at 1458. She delivered a liveborn male via the OA position at 1506. Nuchal cord x1 noted. Baby did cry just after delivery. Cord was clamped x2 and cut after 2 minutes. Baby brought to warmer for poor color but breathing ok. 3rd stage of labor: Placenta delivered spontaneously at 1530. It was found to be intact with a 3 vessel cord. Bleeding was minimal. No lacerations were noted. Baby and mom set up for routine cares. Events: GDMA2 Intrapartal Events: Labor Induction Delivery monitor: external FHT Route of delivery: Laceration description: None Estimated blood loss (mL): 100 Anesthesia type: Epidural Disposition: floor Infant Gender: Male presentation: vertex Placental Delivery Description: Spontaneous Cord Description: 3 Vessels, Nuchal Cord, Loose and Around Body x1
--- NOTE | 2023-09-10 17:20 | P.ANBPRC_ITS ---
[facility] Medical History History of abnormal cervical Pap smear ?Z87.42 - Personal history of other diseases of the female genital tract (ICD-10) History of gestational diabetes ?Z86.32 - Personal history of gestational diabetes (ICD-10) History of delivery ?Z87.51 - Personal history of pre-term labor (ICD-10) History of vaginal delivery Active asthma ?J45.909 - Unspecified asthma, uncomplicated (ICD-10) Surgical History History of wisdom tooth extraction ?K08.409 - Partial loss of teeth, unspecified cause, unspecified class (ICD- 10) History of colposcopy (04/22/09) ?Z98.890 - Other specified postprocedural states (ICD-10) Family History (Updated 08/05/23 @ 11:49 by Federica Ortega MD) Other Breast cancer Diabetes High blood pressure Social History (Updated 08/04/23 @ 14:53 by Elena Turner ~ [facility], CONSUMER SALES REPRESENTATIVE) What is your current living situation?: I presently have a place to live Problems where you live: no known problems In the past 12 months, utilities in danger of being shut off: no In past 12 months, lack of transportation kept you from medical appts, meetings, work, or getting things needed for daily living: no In the past 12 mos, have been you worried that your food would run out before you had money to buy more?: never true In the past 12 mos, the food you bought just didn't last and you didn't have money to buy more?: never true Smoking Status: Former smoker What tobacco products do you use: cigarettes Smoking quit date/years: <= 15 years ago Do you use any of these nicotine containing products: None Second hand tobacco smoke exposure: No How often do you have a drink containing alcohol: never How often do you have six or more drinks on one occasion: Never AUDIT-C Alcohol total score: 0 Non-prescribed substance use: denies use How often does anyone, including family, friends and others, physically hurt you : never How often does anyone, including family, friends and others, insult or talk down to you: never How often does anyone, including family, friends and others, threaten you with harm: never How often does anyone, including family, friends and others, scream or curse at you: never service: No Meds Home Medications and Allergies Home Medications Medication Instructions Recorded Confirmed Type albuterol 90 mcg/actuation aerosol 1 mcg inhalation .2 puff PRN 06/04/22 09/09/23 History inhaler vit no.95-ferrous 1 tab PO DAILY 01/23/23 09/09/23 History fumarate 28 mg-folic acid 800 mcg tablet () blood sugar diagnostic (Contour 08/20/23 08/20/23 History Next Test Strips) blood-glucose meter (Contour Next 08/20/23 08/20/23 History One Meter) blood-glucose sensor (FreeStyle 08/20/23 08/20/23 History Evaristo 3 Sensor device) insulin NPH isoph U-100 human 100 unit subcut 08/20/23 History unit/mL subcutaneous suspension (Novolin N NPH U-100 Insulin isophane) insulin syringe-needle U-100 0.3 08/20/23 08/20/23 History mL 31 gauge x 5/16 lancets (Microlet Lancet) 08/20/23 08/20/23 History Allergies Allergy/AdvReac Type Severity Reaction Status Date / Time aspartame Allergy Severe Shuts Down Verified 09/09/23 21:01 Nervous System Results Labs Labs: Laboratory Results - last 24 hr 09/09/23 20:24 WBC 9.50 RBC 3.91 L Hgb 10.9 L Hct 33.7 MCV 86 MCH 28 MCHC 32 RDW Coeff of Ant 13.5 Plt Count 213 Neut % (Auto) 75.8 H Lymph % (Auto) 16.9 L [place] % (Auto) 5.7 Eos % (Auto) 1.1 Baso % (Auto) 0.2 Neut # (Auto) 7.20 H Lymph # (Auto) 1.60 [place] # (Auto) 0.50 Eos # (Auto) 0.10 Baso # (Auto) 0.02 Abs Immat Gran (auto) 0.03 Imm/Tot Granulo (auto) 0.3 Blood Type O Positive Antibody Screen NEGATIVE Vital Signs Vital Signs: Last Vital Signs Temp 98 F 09/10/23 14:49 Pulse 89 09/10/23 17:14 Resp 17 09/10/23 14:49 BP 128/81 09/10/23 17:14 Pulse Ox 97 09/10/23 15:04 Weight: 111.13 kg Height: 157.48 cm Anesthesia Procedures Epidural Insertion Patient Location: OB Start Time: 14:15 Stop Time: 14:45 Start Date: 09/10/23 Stop Date: 09/10/23 Reason for Block: procedure for pain Patient Position: sitting Performed By: Siria Bernal Preanesthetic Checklist: IV checked, risks and benefits discussed, monitors and equipment checked, timeout performed and anesthesia consent Prep: chlorhexidine gluconate Monitoring: blood pressure monitoring, continuous pulse oximetry and heart rate Approach: midline Vertebral Space: lumbar (1-5) Epidural Technique: JENNIFER saline Needle Type: Tuohy needle Injection Technique: continuous catheter Needle gauge: 17 Needle Length (cm): 10 cm Needle Insertion Depth (cm): 8 Catheter Gauge: 19 Catheter Type: multi-orifice Catheter at skin depth (cm): 13 Test Dose Result: negative and lidocaine 1.5% with epinephrine 1 to 200,000
[2023-09-10] MEDS: IBUPROFEN 600 MG TABLET PO (20:27)
[2023-09-10] MEDS: ACETAMINOPHEN 500 MG TABLET 1000 MG PO (23:21)
[2023-09-10] MEDS: LACTATED RINGERS 1000 ML 1,000 ML 100 ML IV (23:26)
[2023-09-11] VITALS (15 sets, daily range): BP systolic 85–119; BP diastolic 49–83; PULSE 58–85; RESP 11–18; TEMP 36.2–36.8; O2SAT 94–98
[2023-09-11] MEDS: KETOROLAC 30 MG/ML inj IVP ×3 (01:22→21:53)
--- NOTE | 2023-09-11 06:26 | P.OBPN_ITS ---
OB - PN:Subj Subjective Time Seen by Provider: 06:26 Date Seen: 09/11/23 Patient comments OB post-: no complaints, pain well controlled and tolerating diet [place] infant status: bottle and (pumping) OB - PN: Obj Exam Physical Exam: Vital signs: Temp Pulse Resp BP Pulse Ox O2 Del Method 98.3 F 79 18 110/75 98 Room Air 09/11/23 03:27 09/11/23 03:27 09/11/23 03:27 09/11/23 03:27 09/11/23 03:27 09/11/23 03:27 Constitutional: Constitutional: no acute distress Routine HEENT Exam: Head: Present atraumatic and normocephalic Routine Respiratory Exam: Respiratory: Present CTA bilaterally Routine Cardiovascular Exam: Cardiovascular: Present RRR, S1 and S2; Absent murmur Routine Abdominal Exam: Abdominal: Present normal bowel sounds Fundus: Present firm Routine Neurological Exam: Neurological: Present alert and oriented X3 Routine Psychiatric Exam: Psychiatric: Present normal affect OB - PN: A/P Delivery Assessment and Plan (1) Gestational diabetes: Problem details: Fasting blood sugar on PPD 1 was 96 Status: Acute Assessment and Plan: - continue to monitor - will need A1c at 6 week check. (2) Positive GBS test: Problem details: Inadequate GBS abx, so staying for 48 hours to monitor baby. Status: Acute (3) (normal spontaneous vaginal delivery): Problem details: after IOL for GDM. Status: Acute Assessment and Plan: PPD 1, doing well. Pumping/bottling. (mostly formula at this time) Plan day: 1 Plan: routine care
[2023-09-11 07:44] LABS: Hemoglobin* 11.6 gm/dL (12.0-16.0)
[2023-09-11] MEDS: LACTATED RINGERS 1000 ML 1,000 ML 100 ML IV (09:25)
--- NOTE | 2023-09-11 12:41 | W.ANESCHARGE ---
Anesthesia Charges Start Date/Time Anesthesia Start Date: 09/11/23 Anesthesia Start Time: 12:05 Stop Date/Time Anesthesia Stop Date: 09/11/23 Anesthesia Stop Time: 13:11
[2023-09-11] MEDS: BUPIVACAINE 0.5 %/EPI 1:200K 30 ML INJECTION (12:50)
--- NOTE | 2023-09-11 13:07 | PM.GYNPRST ---
Procedure Pre-op/Post-op diagnoses: Pre-Op/Post-Op Diagnoses Operation Date: 09/11/23 12:45 <No data on this case meets the specified criteria> Procedure: Procedures Operation Date: 09/11/23 12:45 Actual Procedure Side Surgeon p Post Tubal Ligation Bilateral Theresa Becker MD Estimated blood loss (mL): 5 Anesthesia type: Spinal Complications: none Specimen: portion of right fallopian tube and portion of left fallopian tube Disposition: floor Narrative: Preoperative diagnosis: Shawanda is a 32 year-old 5 para 4014 with undesired fertility. Postoperative diagnosis: Same Procedure: bilateral salpingectomy. Anesthesia: Spinal and local Surgeon: Theresa Becker MD IV fluid: 500 mL Estimated blood loss: 5 mL Specimen: Bilateral fallopian tubes sent to pathology Findings: On exam under anesthesia the fundus was noted to be approximately 1 cm below the umbilicus. The uterus fallopian tubes and ovaries all appeared normal. Procedure: Shawanda was taken was taken to the operating room where spinal anesthesia was found to be adequate. She had voided immediately prior to being taken to the OR. She was placed in the dorsal supine position and prepped and draped in a normal sterile manner. 0.5% Marcaine was instilled in a horizontal manner, inferior to the umbilicus, 7 mL was used. The skin was then incised in a horizontal manner and the inferior aspect of the umbilicus. Approximately 3 cm length incision was made. This incision was carried sharply to the underlying layer of fascia. The fascia was grasped with 2 Allis clamps and incised in the midline with a scalpel. This incision was carried laterally with Aggarwal scissors. The peritoneum was identified and entered bluntly. No evidence of adhesions was identified. A small Cipriano-O self-retaining retractor was then placed. The left fallopian tube was brought to the incision, grasped with a [place] clamp, and followed to the fimbriated end of the fallopian tube. The hand-held LigaSure dissecting instrument was used to perform serial pedicles putting at the fimbriated end of the tube. The tube was then removed from the cornea. The pedicles were inspected and bipolar cautery used to obtain hemostasis. The right fallopian tube was then brought to the incision and removed in a similar manner. Again excellent hemostasis noted. The Cipriano-O retractor was then removed. The fascia was reapproximated using 0 Vicryl in a running manner. The subcutaneous tissue was irrigated with a small amount of saline and a subcutaneous layer closure was placed with 2-0 chromic. The skin was reapproximated using 4-0 Monocryl in a running subcuticular manner. Exophin skin adhesive was applied. Mepilex dressing was placed. The patient tolerated this procedure well. Sponge, lap and instrument counts were correct x2 at the end of the procedure. Debriefed performed and surgical specimen reviewed. The patient was taken to the recovery area in stable condition.
--- NOTE | 2023-09-11 13:13 | W.ANESCHARGE ---
Anesthesia Charges Start Date/Time Anesthesia Start Date: 09/11/23 Anesthesia Start Time: 12:05 Stop Date/Time Anesthesia Stop Date: 09/11/23 Anesthesia Stop Time: 13:11
--- NOTE | 2023-09-11 13:40 | PM.ANPOST ---
Post Anesthesia Note Post Anesthesia Note Patient seen: Inpatient Respiratory Status: adequate Cardiovascular Status: adequate Mental Status: baseline Pain: adequate Temp: baseline Anesthetic awareness: N/A Complications: none Follow care: none
--- NOTE | 2023-09-11 13:44 | SUR.PHASEI ---
patient met discharge criteria per anesthesia
[2023-09-11] MEDS: IBUPROFEN 600 MG TABLET PO (14:19)
[2023-09-11] MEDS: ACETAMINOPHEN 500 MG TABLET 1000 MG PO ×2 (15:35→23:50)
[2023-09-11] MEDS: OXYCODONE 5 MG TABLET PO ×2 (15:35→19:53)
[2023-09-12] MEDS: ACETAMINOPHEN 500 MG TABLET 1000 MG PO ×2 (06:15→11:48)
[2023-09-12] MEDS: IBUPROFEN 600 MG TABLET PO (06:58)
[2023-09-12] MEDS: OXYCODONE 5 MG TABLET PO ×2 (06:59→11:13)
[2023-09-12 07:59] VITALS: BP 122/84; PULSE 84; RESP 16; TEMP 36.6
--- NOTE | 2023-09-12 07:59 | P.DS_ITS ---
DS: Providers Provider Date Seen: 09/12/23 Date of admission: 09/09/23 19:32 Primary care physician: Simba Black MD Admitting Clinician: Simba Black MD Attending Physician on discharge: Simba Black MD Exam Narrative: Exam Narrative: Gen: laying comfortably in bed Heart: RRR, no murmurs Lungs: CTA b/l Abd: fundus firm; healing surgical incision with periumbilical pain with palpation Extremities: no swelling Const: Vital Signs, click to edit/add: Vital Signs - 24 hr 09/11/23 13:06 09/11/23 13:10 09/11/23 13:15 Temperature 97.2 F L 97.2 F L 97.2 F L Pulse Rate 76 85 79 Pulse Rate [Bilate ral Blood Pressure Cuff] Respiratory Rate 12 11 L 16 Blood Pressure 86/49 L 85/53 L 97/52 L Blood Pressure [Le ft Arm] Pulse Oximetry 94 96 97 Oxygen Delivery Me thod Room Air Room Air 09/11/23 13:20 09/11/23 13:25 09/11/23 13:30 Temperature 97.2 F L 97.2 F L 97.2 F L Pulse Rate 73 75 63 Pulse Rate [Bilate ral Blood Pressure Cuff] Respiratory Rate 14 15 14 Blood Pressure 99/52 L 103/57 L 99/61 Blood Pressure [Le ft Arm] Pulse Oximetry 97 96 97 Oxygen Delivery Me thod Room Air Room Air Room Air 09/11/23 13:35 09/11/23 13:56 09/11/23 14:12 Temperature 97.2 F L Pulse Rate 72 Pulse Rate [Bilate ral Blood Pressure Cuff] 58 L 60 Respiratory Rate 15 Blood Pressure 101/58 L Blood Pressure [Le ft Arm] 109/75 119/78 Pulse Oximetry 97 97 98 Oxygen Delivery Me thod Room Air Room Air Room Air 09/11/23 14:26 09/11/23 14:41 09/11/23 17:48 Temperature 97.9 F Pulse Rate Pulse Rate [Bilate ral Blood Pressure Cuff] 62 65 68 Respiratory Rate 16 Blood Pressure Blood Pressure [Le ft Arm] 114/75 119/83 107/68 Pulse Oximetry 98 97 97 Oxygen Delivery Me thod Room Air Room Air 09/11/23 23:42 Temperature 98.0 F Pulse Rate Pulse Rate [Bilate ral Blood Pressure Cuff] 60 Respiratory Rate 16 Blood Pressure Blood Pressure [Le ft Arm] 117/73 Pulse Oximetry 98 Oxygen Delivery Me thod Room Air OB - DS: Summary Hospital Course Hospital Course: The patient is a 32 year old G 5 P 4 admitted to the Center on 09/09/23 for IOL secondary to uncontrolled gestational diabetes. She had an uncomplicated vaginal delivery at 38.3 weeks gestation on 09/10/23. She delivered a viable male infant. Blood sugars have been stable post . She is pumping and bottle feeding breast milk and formula. Also had post- tubal on 09/11/23. Has been experiencing incisional pain from this, managing with PO analgesics including oxycodone. Peripartum Data Infant delivery method: Vaginal Laceration description: None Procedures: Procedures Operation Date: 09/11/23 12:45 Actual Procedure Side Surgeon p Post Tubal Ligation Bilateral Theresa Becker MD Procedures: tubal ligation/salpingectomy [place] Infant Gender: Male Discharge Plan: Home Status at Discharge Functional status at discharge: independent ambulation Time Spent with Patient Time attestation: Total time spent providing and/or coordinating discharge services: Time spent: Less than 30 minutes Discharge Plan Discharge Disposition: Home, Self-Care Date of Admission: 09/09/23 19:32 Attending Provider on Discharge: Karin Land Primary Care Provider: Simba Black Condition: Stable Anticipated Discharge Date/Time: 09/12/23 12:00 Discharge Medications: New acetaminophen 500 mg Tablet 1,000 mg PO Q6H PRNQty: 40 0RF ibuprofen 600 mg Tablet 600 mg PO Q6H PRNQty: 40 0RF oxycodone 5 mg Tablet 5 mg PO Q4H PRN (Reason: 4 OR GREATER ON PAIN SCALE) Qty: 10 0RF Continued PNV cmb#95-ferrous fumarate-FA [] 28 mg iron- 800 mcg tablet 1 tab PO DAILY albuterol 90 mcg/actuation aerosol 1 mcg inhalation .2 puff PRN Discontinued (DME) blood-glucose meter [Contour Next One Meter] Misc MISCELLANEOUS QID (DME) Contour Next Test Strips Strip MISCELLANEOUS QID (DME) lancets [Microlet Lancet] Misc MISCELLANEOUS QID Novolin N NPH U-100 Insulin 100 unit/mL suspension subcut (DME) insulin syringe-needle U-100 0.3 mL 31 gauge x 5/16 syringe MISCELLANEOUS Patient Comments: FOR USE WOITH INSULIN ONCE PER DAY AT BEDTIME (DME) FreeStyle Evaristo 3 Sensor Device MISCELLANEOUS Discharge Orders: Discharge Order (Routine); Ordered 09/12/23 Ordered By: Karin Land Patient Education: Tubal Ligation (DC), OB Vaginal/Bottle Feeding Follow Up Appointments: Simba Black MD [Primary Care Provider] - Forms: [facility] Info Instructions Discharge Comments: Schedule follow-up weight check at Center on Friday, 09/14.
[2023-09-12] MEDS: LIDOCAINE 5% PATCH 1 PATCH TRANSDERMA (09:49)
[2023-09-12] MEDS: DOCUSATE SODIUM 100 MG CAPSULE PO (09:55)
[2023-09-12 11:27] LABS: Hemoglobin* 11.5 gm/dL (12.0-16.0)
== END 2023-09-12 12:00 | disposition home or self-care (01) | DRG 541 ==
PROVIDERS: Obstetrics & Gynecology; Admitting Provider Surgery; PCP Surgery; Visit Provider Surgery
PROC: 0UT70ZZ Resection of Bilateral Fallopian Tubes, Open Approach (ICD-10-PCS; CPT 58605; principal; 2023-09-11 12:30)
DX: O24.424 Gestational diabetes mellitus in childbirth, insulin controlled (principal); Z3A.38 38 weeks gestation of pregnancy; Z37.0 Single live birth; O99.824 Streptococcus B carrier state complicating childbirth; Z30.2 Encounter for sterilization
CPT/HCPCS: 00851; 01967; 36415; 59200; 85018; 85025; 86850; 86900; 86901; A9270; J0290; J1100; J1885; J2371; J2405; J2704; J2795; J3010; J3490; J7120; S0020

== ENCOUNTER 2024-10-12 05:48 | Emergency (ER) | payer BC, SELFPAY ==
--- OUTSIDE RECORDS SUMMARY | 2024-10-12 05:50 | XMS_ITS | Continuity of Care Document ---
Author Name NwHIN User [facility] Address Unknown Organization Unknown Address Unknown Procedures FILTER APPLIED:Only known Procedures with Onset Date within the last 5 years Procedure Date Procedure Provider Lashonda kern Information Status HEMOGLOBIN (44413) Compl eted ANESTH TUBAL LIGATION (98493) Completed INSERT CERVICAL DILATOR (07914) Completed NEURAXL LBR ANES VAG DLVR (93509) Completed ROUTINE VENIPUNCTURE (44697) Completed BLOOD TYPING SEROLOGIC ABO (26228) Completed RBC ANTIBODY SCREEN (47055) Completed BLOOD TYPING SEROLOGIC RH(D) (03106) Completed COMPLETE CBC W/AUTO DIFF WBC (61800) Completed OFFICE O/P EST LOW 20 MIN (06296) Completed STREP B DNA AMP PROBE (62559) Completed CULTURE SCREEN ONLY (40637) Completed URINE CULTURE/COLONY COUNT (64430) Completed NON-STRESS TEST (20316) Completed SMEAR WET [place] SALINE/INK (10641) Completed URINALYSIS AUTO W/O SCOPE (83188) Completed MICROSCOPIC EXAM OF URINE (04240) Completed X-RAY EXAM OF FEMUR 2/> (47496) Completed EMERGENCY DEPT VISIT LOW MDM (58880) Completed Encounters FILTER APPLIED:Only known Encounters with Admission Date within the last 5 years Encounter Location Admission Discharge Billing Code Senior Data Architect [facility] [place] Inpatient [id number] Darwin Black
--- OUTSIDE RECORDS SUMMARY | 2024-10-12 05:50 | XMS_ITS | Clinical Summary ---
Author Organization [facility] Address [address] [place] [address]. [place] [address] Care Team Providers Care Bilingual Teacher Assistant Name Role Phone No Ref-Primary, Physician Primary Care Provider Allergies Active Allergy Reactions Criticality Noted Date Comments Aspartame 09/06/2008 Noted in 09/04/08 ER Medications Vit-Fe Fumarate-FA ( VITAMIN PO) Take 1 tablet by mouth daily Active albuterol (PROAIR HFA/PROVENTIL HFA/VENTOLIN HFA) 108 (90 BASE) MCG/ACT InhalerIndicatio ns:Acute bronchitis, unspecified organism Inhale 2 puffs into the lungs every 4 hours as needed 09/18/2017 Active pregabalin (LYRICA) 75 MG capsule Take 75 mg by mouth 3 times daily Active Active Problems Problem Noted Date Diagnosed Date Acute bronchitis 09/18/2017 Bronchitis 09/17/2017 Supervision of other high-risk 008 Overview (06/23/2015): Labs from [place]: Blood type O positive, HIV/Hepb/HIV: negative, Rubella: immune, RPR: no result history of PTD Fast labors-last labor 10 minutes ABELARDO changed based on 18 week sono. BPPs weekly starting at 39 weeks Problem list name updated by automated process. Provider to review History of delivery, currently 09/07/2008 Overview (12/27/2008): 32weeks, then 36 weeks on 17 OH-P Weekly 17 OH-P, 09-28-08: started 17OH-P injections today. (Plans every Friday here) Cervical length 4.34 cm Cervical lengths every other week. Immunizations Name Administration Dates Next Due HIB (PRP-T) 05/23/1992,09/03/1991,06/29/1991 ,02/24/1991 HepB 01/18/1999,12/18/1998,12/18/1998 Historical DTP/aP 09/22/1995 MMR 02/23/2001,05/23/1992 OPV, trivalent, live 10/17/1995,05/23/1992,06/29,02/24/1991 TD,PF 7+ (Teniva) 08/19/2003 Family History Medical History Relation Comments Diabetes Maternal Grandfather Arthritis Maternal Grandmother Breast Cancer Paternal Grandmother Relation Status Comments Brother Alive Father Alive Maternal Grandfather Maternal Grandmother Mother Alive Paternal Grandmother Sister 1 Alive Sister 2 Alive Social History Tobacco Use Types Packs/Day Years Used Date Smoking Tobacco: Never Alcohol Use Standard Drinks/Week Comments No 0 (1 standard drink = 0.6 oz pur e alcohol) Adolescent Education Answer Date Record ed Getting School Help Needed Not on file 07/08 Comments Unknown Sex and Gender Information Value Date Recorded Sex Assigned at Not on file Legal Sex Female 4:54 AM CLINIC MD ASSOCIATE Gender Identity Not on file Sexual Orientation Not on file 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 Not on file Not on file Not on file Last Filed Vital Signs Vital Sign Reading Time Taken Comments Blood Pressure 111/71 02/08/2023 2:17 AM CDT Pulse 75 02/08/2023 2:17 AM CDT Temperature 36.8 C (98.2 F) 02/08/2023 2:17 AM CDT Respiratory Rate 18 02/08/2023 2:17 AM CDT Oxygen Saturation 97% 02/08/2023 2:17 AM CDT Inhaled Oxygen Concentration - - Weight 95.9 kg (211 lb 6.4 oz) 09/17/2017 2:39 A M CLINIC MD ASSOCIATE Height 157.5 cm (5' 2) 09/17/2017 2:39 AM CLINIC MD ASSOCIATE Body Mass Index 38.67 09/17/2017 2:39 AM CLINIC MD ASSOCIATE Plan of Treatment Health Maintenance Due Date Last Done Comments ADVANCE CARE PLANNING 1990 ANNUAL REVIEW OF HM ORDERS 1990 HIV SCREENING 2005 HEPATITIS C SCREENING 2008 PAP 12/21/2011 09/07/2008, 06/02/2008 YEARLY PREVENTIVE VISIT 06/07/2023 06/07/2022, 01/12 COVID-19 Vaccine (2023- season) 2024 INFLUENZA VACCINE (#1) 2024 7, 07/20/2014, 07/24/2011, Additional history exists PHQ-2 (once per calendar year) 2024 DTAP/TDAP/TD IMMUNIZATION (5 - Td or Tdap) 11/11/2027 11/11/2017, 06/29/2010, 08/19/2003, Additional history exists RSV VACCINE (1 - 1-dose 75+ series) 2065 HEPATITIS B IMMUNIZATION Completed 010, 01/18/1999, 01/18/1999, Additional history exists HPV IMMUNIZATION Completed 07/24/2011, 12/2010, 06/29/2010 MENINGITIS IMMUNIZATION Aged Out No l onger eligible based on patient's age to complete this topic Pneumococcal Vaccine: Pediatrics (0 to 5 Years) and At-Risk Patients (6 to 49 Years) Aged Out No longer eligible based on patient's age to complete this topic RSV MONOCLONAL ANTIBODY Aged Out No l onger eligible based on patient's age to complete this topic Procedures Procedure Name Priority Date/Time Associated Diagnosis Comments HCL PAP THIN LAYER SCREEN Routine 09/07/2008 12:00 AM CLINIC MD ASSOCIATE Care from Last 3 Months or Most Recently Relevant to Health Maintenance Results * A THIN LAYER PAP SCREEN (09/07/2008 12:00 AM CLINIC MD ASSOCIATE) PAP CK Perla Report Patient Name: SHAWANDA ROMERO MR#: [id number] Specimen #: [id number] Collected: 09/07/2008 Received: 09/08/2008 Reported: 09/09/2008 11:12 Ordering Phy(s): RENÉ DUPREE SPECIMEN/STAIN PROCESS: Pap thin layer prep screening ([facility]) Pap-Cyto x 1, Reflex HPV x 1 SOURCE: Cervical, endocervical Pap thin layer prep screening ([facility]) SPECIMEN ADEQUACY: Satisfactory for evaluation. -Transformation zone component present. CYTOLOGIC INTERPRETATION: Negative for Intraepithelial Lesion or Malignancy Electronically signed out by: ASHLEY Tolbert (ASCP) Processed at [facility], [facility], screened at [facility] CLINICAL HISTORY: LMP: no lmp recorded , TESTING LAB LOCATION: [address] [place] [id number] COLLECTION SITE: Client: [facility] Location: [facility]WOB (W) COPATH 09/07/2008 09/08/2008 8:2 9 AM CLINIC MD ASSOCIATE us René Dupree MD LABORATORY Final Re sult COPATH from Last 3 Months or Most Recently Relevant to Health Maintenance Advance Directives For more information, please contact: [phone] * Full Code (Latest Code Status on File) Date Activated Date Inactivated Comments 09/18/2017 12:21 PM 02/08/2023 12:50 AM * Full Code Date Activated Date Inactivated Comments 09/17/2017 2:44 AM 09/18/2017 12:21 PM Care Teams Bilingual Teacher Assistant Relationship Specialty Start Date End Date No Ref-Primary, Physician PCP - General 09/16/17
--- OUTSIDE RECORDS SUMMARY | 2024-10-12 05:51 | XMS_ITS | Clinical Summary ---
Author Organization [employer] [facility] [employer] Address [place], [place] [address] Care Team Providers Care Natural Sciences Department Chair Name Role Phone Simba Black MD Primary Care Provider [phone] Petra Hernandez MD Unavailable [phone] Allergies Active Allergy Reactions Criticality Noted Date Comments Aspartame Other - Describe In Comment Field 12/01/2006 Noted in 09/04/08 ER vasovagal syncope Medications albuterol HFA (ProAir HFA) 90 mcg/actuation inhalerIndicatio ns:Cough, unspecified type Inhale 1-2 Puffs by mouth every 4 hours if needed for Wheezing or Shortness Of Breath. 1 Each 3 4 Active Active Problems Problem Noted Date Diagnosed Date Gestational diabetes 07/04/2023 delivery 05/13/2023 01/21/2023 Overview (09/09/2023): Estimated Date of Delivery: 09/21/23 Patient's last menstrual period was 12/15/2022 (exact date). Poorly controlled gestational diabetic GBS- Vaginal/Rectal OB Strep B PCR Date Value Ref Range Status 08/26/2023 Positive (A) Final Comment: If susceptibility is needed due to penicillin allergy, contact lab. Last Tdap- 07/01/23 Last Flu vaccine- 2016 Glucose (GTT) result- GLUCOSE,GESTATIONAL Date Value Ref Range Status 07/01/2023 139 70 - 139 mg/dL Final 10/31/2017 131 65 - 139 mg/dL Final GLUC LAINE,FAST (GEST) Date Value Ref Range Status 07/03/2023 111 (H) 65 - 95 mg/dL Final GLUC LAINE,1HR (GEST) Date Value Ref Range Status 07/03/2023 210 (H) 65 - 180 mg/dL Final GLUC LAINE,2HR (GEST) Date Value Ref Range Status 07/03/2023 120 65 - 155 mg/dL Final GLUC LAINE,3HR (GEST) Date Value Ref Range Status 07/03/2023 118 65 - 140 mg/dL Final OB Labs- HEMOGLOBIN Date Value Ref Range Status 07/01/2023 11.6 (L) 12.0 - 16.0 g/dL Final 01/21/23 1453 01/21/23 1445 HGB -- 13.0 ABORH -- O Rh Positive RCBANTIBODY -- Negative TREPONEPALLI -- Negative RUBELLAIGG -- 7.49 Positive CHLAMYDIAPRB Negative -- NGONORRPROBE Negative -- Component Latest Ref Rng 01/21/2023 2:45 PM HIV Scr 4th Gen Non Reactive Non Reactive Hep B Surf Ag Scr Negative Negative HCV Ab Non Reactive Non Reactive Allergies Allergen Reactions Aspartame Other - Describe In Comment Field Noted in 09/04/08 ER vasovagal syncope OB History Para Term AB Living 5 4 2 2 0 3 SAB IAB Ectopic Multiple Live Births 0 0 0 0 4 # Outcome Date GA Lbr Barrington/2nd Weight Sex Delivery Anes PTL Lv 5 Current 4 Term 01/26/18 VAGINAL KASSANDRA BAYRON Name: Josemanuel 3 Term 02/22/09 38w1d 3.49 kg (7 lb 11 oz) M Vag Y BAYRON Comments: Anemia Name: Fito Marcelo Apgar1: 8 Apgar5: 9 2 10/06/07 36w0d 08:00 3.18 kg (7 lb) M Vag Y ND Name: Juan 1 12/02/06 32w0d 03:00 2.32 kg (5 lb 2 oz) F Vag EPIDURAL Y BAYRON Name: Andrzej Apgar1: 7 Apgar5: 9 Past Medical History: . Date ASCUS with positive high risk HPV 03/2009; 10/2013; 11/2015 Routine Pap screening Asthma exercise induced Depression First-degree perineal laceration, unspecified as to episode of care in 12/02/2006 H/O delivery, currently Deliveries at 29w 32w,35w LSIL (low grade squamous intraepithelial lesion) on Pap smear 05/2008 Pyelonephritis 2011 Varicella in childhood Past Surgical History: . Laterality Date COLPOSCOPY 04/22/2009 WISDOM TEETH EXTRACTION No data on file. Problems (from 01/21/23 to present) No problems associated with this episode. Neelam Bhardwaj RN ....01/21/2023 2:31 PM Carpal tunnel syndrome of right wrist 11/24/2022 Overview (11/24/2022): 10/2022: EMG showing mild carpal tunnel changes of the median nerve at the wrist Polyarthropathy 10/29/2022 Chronic right shoulder pain 10/19/2022 Overview (10/19/2022): September 2022: starting lyrica. Right Shoulder pain , right distal upper extremity pain and numbness. Also back pain Positive SABINA (antinuclear antibody) 10/19/2022 Overview (10/19/2022): August 2022: Component Latest Ref Rng & Units 09/19/2022 ANTINUCLEAR ANTIBODY (SABINA) Negative Positive (A) SABINA PATTERN 1 (none) Speckled (A) SABINA TITER 1 (none) 1:320 (A) Exercise-induced asthma 11/17/2013 PTSD (post-traumatic stress disorder) 04/27/2009 Major depression, single episode 04/27/2009 Adjustment disorder with mixed anxiety and depre ssed mood 03/30/2009 LSIL (low grade squamous int raepithelial lesion) on Pap smear 05/23/2008 Overview (11/24/2013): 05/2008 ASCUS with positive high risk HPV cervical Overview (01/26/2021): 03/2009; 10/2013, 11/2015 Resolved Problems Problem Noted Date Diagnosed Date Resolved Date Positive SABINA (antinuclear antibody) 10/19/2022 10/29/2022 11/03/2017 06/16/2018 Overview (01/02/2018): I just received a call from the [facility] Child [facility] returned case inspector. She did not give details other than when the patient delivers, we need to call the [facility] Crisis line [phone]. We can call 14/04, 7 days a week. Estimated Date of Delivery: 01/31/18 Patient's last menstrual period was 04/26/2017 (exact date). Last Tdap- 11/11/2017 Last Flu vaccine- 06/04/2017 Allergies Allergen Reactions Aspartame Other - Describe In Comment Field Noted in 09/04/08 ER vasovagal syncope Obstetric History T0 L2 SAB1 TAB0 Ectopic0 Multiple0 Live Births3 # Outcome Date GA Lbr Barrington/2nd Weight Sex Delivery Anes PTL Lv 5 Current 4 02/22/09 38w1d M Vag Y BAYRON 3 10/06/07 36w4d M Vag Y ND 2 12/02/06 32w2d 05:00 2.466 kg (5 lb 7 oz) F Vag EPIDURAL Y BAYRON Name: Andrzej Apgar1: 7 Apgar5: 9 1 SAB 2005 6w0d FD Component Latest Ref Rng & Units 06/04/2017 06/04/2017 2:35 PM 2:35 PM ANTIBODY SCREEN Negative Negative SPECIMEN EXPIRATION DATE/TIME 06/07/17 23:59 HEMOGLOBIN 12.0 - 16.0 g/dL 13.5 MCV 80 - 100 fL 94 RUBELLA IGG ANTIBODY Positive HEMOGLOBIN A1C SCREENING <6.4 % 5.0 ABORH O Rh Positive HBSAG Nonreactive Nonreactive HEPATITIS C ANTIBODY Non-Reactive Reactive, Preliminary Positive (A) HIV-1/HIV-2 ANTIBODY Non-Reactive Non-Reactive TREPONEMA PALLIDUM Negative Negative GLUCOSE,GESTATIONAL 65 - 139 mg/dL Component Latest Ref Rng & Units 06/04/2017 10/31/2017 2:35 PM ANTIBODY SCREEN Negative SPECIMEN EXPIRATION DATE/TIME HEMOGLOBIN 12.0 - 16.0 g/dL 11.4 (L) MCV 80 - 100 fL 94 RUBELLA IGG ANTIBODY 7.59 HEMOGLOBIN A1C SCREENING <6.4 % ABORH HBSAG Nonreactive HEPATITIS C ANTIBODY Non-Reactive HIV-1/HIV-2 ANTIBODY Non-Reactive TREPONEMA PALLIDUM Negative GLUCOSE,GESTATIONAL 65 - 139 mg/dL 131 Component Latest Ref Rng & Units 12/25/2017 Culture No Group B Streptococcus isolated. Past Medical History: Diagnosis Date ASCUS with positive high risk HPV 03/2009; 10/2013; 11/2015 Repeat Pap in 1 year -(Due 11/2016) First-degree perineal laceration, unspecified as to episode of care in 12/02/2006 H/O delivery, currently Deliveries at 29w 32w,35w LSIL (low grade squamous intraepithelial lesion) on Pap smear 05/2008 Past Surgical History: Procedure Laterality Date COLPOSCOPY 04/2009 No data on file. EDC 01/31/18 Problems (from 06/04/17 to present) Problem Noted Resolved [facility] consult: 17P 08/25/2017 by Radha [place] RN No Overview Addendum 10/30/2017 3:20 PM by Jacqueline Sanchez RN [facility] CONSULTATION REASON FOR CONSULT: Weekly 17p injections until 36 weeks; Next due 11/06/17 on RIGHT side (27w5d) APPOINTMENTS THROUGH : 11/13/17 PRIMARY DIAGNOSIS: 26 y.o. Estimated Date of Delivery: 01/31/18 History of deliveries x 2 (32w 2006, 36w4d 2007), 38w1d Colposcopy 2008 LAST GROWTH: 06/24/17 8w0d dating U/S REFERRING PHYSICIAN/PHONE/LAST UPDATE: Dr Simba Black Primary MD approves scheduling of recommended ultrasounds/testing. SPECIALISTS/PHONE: GREG[facility]: CARE COORDINATION: GENETICS: 07/31/17 [place] PROCEDURES: PERTINENT LABS: 06/04/17: TP: negative, Hgb A1C: 5.0, O positive, Hgb 13.5 PERTINENT MEDS: MD PLAN OF CARE: 08/28/17 per DLS Weekly 17OHP until 36 weeks and every 2 weeks cervical surveillance Estimated Date of Delivery: 01/31/18 Patient's last menstrual period was 04/26/2017 (exact date). Last Tdap- 06/29/2010 Last Flu vaccine- 06/04/2017 Marge Doe RNC.....11/03/2017 8:08 AM Encounter for supervision of normal in first trimester 09/11/2017 09/11/2017 Previous delivery in second trimester, antepartum 08/28/2017 07/15/2023 [facility] consult: 17P 08/25/2017 Overview (01/05/2018): [facility] CONSULTATION REASON FOR CONSULT: Weekly 17p injections until 36 weeks; Next due 01-08-18 on LEFT side (36 5/7) LAST INJECTION APPOINTMENTS THROUGH : 01-08-18 PRIMARY DIAGNOSIS: 26 y.o. Estimated Date of Delivery: 01/31/18 History of deliveries x 2 (32w 2006, 36w4d 2007), 38w1d Colposcopy 2008 LAST GROWTH: 06/24/17 8w0d dating U/S REFERRING PHYSICIAN/PHONE/LAST UPDATE: Dr Simba Black Primary MD approves scheduling of recommended ultrasounds/testing. SPECIALISTS/PHONE: GREGOR: CARE COORDINATION: GENETICS: 07/31/17 Dix PROCEDURES: PERTINENT LABS: 06/04/17: TP: negative, Hgb A1C: 5.0, O positive, Hgb 13.5 PERTINENT MEDS: MD PLAN OF CARE: 08/28/17 per DLS Weekly 17OHP until 36 weeks and every 2 weeks cervical surveillance Estimated Date of Delivery: 01/31/18 Patient's last menstrual period was 04/26/2017 (exact date). Last Tdap- 06/29/2010 Last Flu vaccine- 06/04/2017 with history of pre-term labor 06/19/2007 11/13/2007 First-degree perineal lacera tion, unspecified as to episode of care in 12/02/200611/13 VAGINAL DELIVERY AT 32 3/7 WEEKS 12/01/2006 11/13/2007 Supervision of other high ri sk pregnancies, unspecified trimester 12/01/2006 01/21/2023 Overview (09/18/2021): Labs from [facility]: Blood type O positive, HIV/Hepb/HIV: negative, Rubella: immune, RPR: no result history of PTD Fast labors-last labor 10 minutes ABELARDO changed based on 18 week sono. BPPs weekly starting at 39 weeks Problem list name updated by automated process. Provider to review Threatened premature labor i n second trimester 01/21/2023 Immunizations Name Administration Dates Next Due DTP 09/22/1995 Dtap-5 Pertussis Antigens 09/22/1995 HIB PRP-T (ActHIB,Hiberix) 05/23/1992,09/03/1991 ,06/29/1991,02/24/1991 HPV 9 (Gardasil 9) 07/24/2011,10/26/2010, 010 Hepatitis A (Adult) 12/31/2010,06/29/2010 Hepatitis B (Adult) 06/29/2010,01/18/1999,1998 Hepatitis B, Unspecified 01/18/1999,12/18/1998 Human Papilloma Virus Vaccine 07/24/2011, 011,06/29/2010 Inactivated Polio Vaccine 10/17/1995,05/23/1992, 06/29/1991,02/24/1991 Influenza Virus, Unspecified 07/24/2011,06/29/20 10 Influenza, IIV4 07/20/2014 Influenza, IIV4 (=>6mos) MDV 06/04/2017 MMR 02/23/2001,05/23/1992 Oral Polio Vaccine 10/17/1995,05/23/1992, 991,02/24/1991 Td (Age >=7 Years) 08/19/2003 Tdap 07/01/2023,11/11/2017,06/29/2010 Family History Medical History Relation Name Comments Good Health Brother Good Health Father Asthma Maternal Grandmother Diabetes Maternal Grandmother Good Health Mother Heart Disease Other cousin-paternal Great uncle --MA<50 yrs. old Cancer-breast Paternal Grandmother Good Health Sister 1 Good Health Sister 2 Relation Name Status Comments Brother Alive Daughter 1 andrzej Daughter 2 brinley Alive Father Alive Maternal Grandmother Mother Alive Other cousin-paternal Paternal Grandmother Sister 1 Alive Sister 2 Alive Son 1 Son 2 Alive Social History Tobacco Use Types Packs/Day Years Used Date Smoking Tobacco: Former Cigarettes Q uit: 01/11/2023 Smokeless Tobacco: Never Tobacco Cessation:Counseling Given: Yes Alcohol Use Standard Drinks/Week Comments No 0 (1 standard drink = 0.6 oz pur e alcohol) PHQ-2 Answer Date Recorded PHQ-2 TOTAL SCORE 5 10/28/2023 Social Connections Answer Date Recorded Frequency of Communication with Friends and Fami ly 0 07/01/2023 Financial Resource Strain Answer Date R ecorded Difficulty of Paying Living Expenses 3 07/01/2023 Difficulty of Paying Living Expenses Not on file 07/01/2023 Food Insecurity Answer Date Recorded Worried About Running Out of Food in the Last Ye ar 1 07/01/2023 Transportation Needs Answer Date Record ed Lack of Transportation (Medical) 1 07/01/2023 Housing Stability Answer Date Recorded Unable to Pay for Housing in the Last Year 1 07/01/2023 Comments No Sex and Gender Information Value Date Recorded Sex Assigned at Not on file Legal Sex Female 5:19 AM GUIDE EXCURSION Gender Identity Not on file Sexual Orientation Not on file Occupation Industry Job Start Date Job End Date Not on file Not on file Not on file Not on file Obstetrics History Para Term AB IAB SAB Ectopic Multiple Livin g Live Births 5 4 2 2 0 0 3 4 Date Outcome GA Total Labor Labor//3rd Weight Sex Type Anes PTL Bayron A1 A5 Name Clin 2006 32w 0d 3h 00m/ 2.32 kg (5 lb 2 oz) F Vag Epidur al Y Livin g 7 9 Andrzej felto vic Delivery Location:[facility] 2007 36w 0d 8h 00m/ 3.18 kg (7 lb) M Vag Y Neona ivy Demis e Rene las Complications:None Living Status Comments: at 18 months of age Delivery Location:[place], [place] 2008 Term 38w 1d 3.49 kg (7 lb 11 oz) M Vag Y Livin g 8 9 Fito ROLLINS, ANIYA Mosquera Complications:None Delivery Location:[facility]) Comments:Anemia 2017 Term VAGINA L KASSANDRA Livin g Brynl ee Last Filed Vital Signs Vital Sign Reading Time Taken Comments Blood Pressure 106/70 01/13/2024 4:58 PM CDT Pulse 86 01/13/2024 4:58 PM CDT Temperature 36.7 C (98 F) 01/13/2024 4:58 PM CDT Respiratory Rate 16 12/27/2022 3:30 PM CDT Oxygen Saturation 98% 01/13/2024 4:58 PM CDT Inhaled Oxygen Concentration - - Weight 101 kg (222 lb 9.6 oz) 10/28/2023 3:30 PM GUIDE EXCURSION Height 159.4 cm (5' 2.76) 08/26/2023 11:[address] Body Mass Index 39.74 08/26/2023 11:46 AM GUIDE EXCURSION Plan of Treatment Health Maintenance Due Date Last Done Comments Pneumococcal series for age 6-49 (1 of 2 - PCV) 2009 COVID-19 vaccine series ( - season) 2024 Influenza for age 9-49 05/23/2024 7, 07/20/2014, 07/24/2011, Additional history exists BMI (ht and wt on same day) for age 18+ 08/26/2024 08/26/2023, 01/21/2023, 12/27/2022, Additional history exists Depression screening for age 12+ 10/28/2024 10/28/2023, 06/17/2023, 06/10/2022, Additional history exists Pap test for age 21-65 01/12/2026 , 01/12/2021, 05/04/2018, Additional history exists Tetanus booster 07/01/2033 07/01/2023, 10/24, 06/29/2010 (Completed outside of [facility]), Additional history exists HIV for age 15-65 Completed 01/21/2023, , 06/04/2017, Additional history exists Hepatitis C screening for ag e 18-79 Completed 01/21/2023, 01/12/2021, 01/12/2021, Additional history exists Tdap Completed 07/01/2023, 10/24, 06/29/2010 Procedures Procedure Name Priority Date/Time Associated Diagnosis Comments LC HIV-1/O/2, 4TH GENERATION Routine 01/21/2023 2:45 PM CDT Encounter for supervision of other normal in first trimester LC HCV ANTIBODY RFX TO QUANT PCR Routine 01/21/2023 2:45 PM CDT Encounter for supervision of other normal in first trimester FRONT COUNTER ATTENDANT THIN PREP PAP SCREEN IMAGED Routine 01/12/2021 9:12 AM CDT Pap smear for cervical cancer screening from Last 3 Months or Most Recently Relevant to Health Maintenance Results * LC HCV ANTIBODY RFX TO QUANT PCR (01/21/2023 2:45 PM CDT) Pathologist [facility] HCV Ab Non Reactive Non Reactive 01/23/2023 2:08 PM CDT [facility]ERIC TEST[facility] ([facility]) Blood BLOOD SPECIMEN / Unknown Venipuncture / Unknown 01/21/2023 2:45 PM CDT 01/21/2023 2:[address] [facility] ESOTERIC TESTING (CET) - 01/23/2023 2:08 PM CDT Performed at: [address] [place] [id number] Supervisor Irrigation: Houston Muse MD, Phone: [phone] Petra Hernandez MD LABORATORY Final Resul t [facility] FOR [facility] ([facility]) [address] [place] [address], * LC HIV-1/O/2, 4TH GENERATION (01/21/2023 2:45 PM CDT) [facility] HIV Scr 4th Gen Non Reactive Non Reactive 01/23/2023 2:09 PM CDT [facility] ([facility]) Comment: HIV Negative HIV-1/HIV-2 antibodies and HIV-1 p24 antigen were NOT detected. There is no laboratory evidence of HIV infection. Blood BLOOD SPECIMEN / Unknown Venipuncture / Unknown 01/21/2023 2:45 PM CDT 01/21/2023 2:[address] [facility] FOR ESOTERIC TESTING (CET) - 01/23/2023 2:09 PM CDT Performed at: [facility] [place] [id number] Supervisor Irrigation: Houston Muse MD, Phone: [phone] us Petra Hernandez MD LABORATORY Final Resul t [facility] ([facility]) [address] [place] [id number], * FRONT COUNTER ATTENDANT THIN PREP PAP SCREEN IMAGED (01/12/2021 9:12 AM CDT) Case Report Gynecologic Cytology Report Case: [id number] Authorizing Provider: Simba Black MD Collected: 01/12/2021 0912 Ordering Location: [facility] Received: 01/12/2021 0922 Clinic First Screen: [place] Specimen: FRONT COUNTER ATTENDANT ThinPrep Vial Screening, Cervical 01/23/2021 1:50 PM CDT [facility]- ENTRAL LABORATORY INTERPRETATION/ RESULT NEGATIVE FOR INTRAEPITHELIAL LESION OR MALIGNANCY (NIL) (none) 01/23/2021 1:50 PM CDT [facility] ENTRAL LABORATORY IMEN ADEQUACY Satisfactory for evaluation Endocervical component present 01/23/2021 1:50 PM CDT [facility] ENTRAL LABORATORY HPV REQUEST HPV and PAP 01/23/2021 1:50 PM CDT [facility] LABORATORY-C ENTRAL LABORATORY Date of LMP unknown 01/23/2021 1:50 PM CDT [facility] ENTRAL LABORATORY Last Pap Date 05/04/18 01/23/2021 1:50 PM CDT [facility]AL LABORATORY Last Pap Result NIL 1:50 PM CDT [facility] EN[facility]AL LABORATORY Abnormal Pap or [place] Bx in last 5 years No 01/23/2021 1:50 PM CDT [facility] LABORATORY-C ENTRAL LABORATORY Menstrual Status Hormonally Suppressed 01/23/2021 1:50 PM CDT [facility] ENTRAL LABORATORY [place] Bx Done Today No 01/23/2021 1:50 PM CDT [facility] ENTRAL LABORATORY Additional Information None given 01/23/2021 1:50 PM CDT [facility] Comment: Cytology is screened at [facility] - [address], [place] [address] and [facility] - [address] [place] [address], [place] [address] and [facility] - [address] [place] [address] Interpreted at [facility] - [address] [place] [address], [place] [address] Automated Review Successful 01/23/2021 1:50 PM CDT [facility]- ENTRAL LABORATORY Comment:Specimen processed s uccessfully by automated real property evaluator device, import.ioPrep Imaging System, [employer] ANCILLARY TESTING FRONT COUNTER ATTENDANT HPV Ordered, Please see separate report 01/23/2021 1:50 PM CDT [facility]- ENTRTN LABORATORY Note The pap test is a screening technique, not a diagnostic procedure. It is used primarily to screen for squamous cancers and precursor lesions. Published studies have shown that it is subject to both false negative and false positive results. The pap test should not be used as the sole means to diagnose or exclude pre-malignant and malignant lesions. 01/23/2021 1:50 PM CDT [facility] LABORAT[facility] Other (Cervical) Non-Blood / Unknown 01/12/2021 9:12 AM CDT 01/12/2021 9:22 AM CDT us Simba Black MD PATHOLOGY/CYTOLOGY Final R esult [facility] [address] [place] [address], [place] from Last 3 Months or Most Recently Relevant to Health Maintenance Insurance [facility] Advance Directives * Full Code (Latest Code Status on File) Date Activated Date Inactivated Comments 10/30/2017 11:11 AM 10/30/2017 4:03 PM * Full Code Date Activated Date Inactivated Comments 12/02/2006 1:38 AM 12/04/2006 1:56 PM * Full Code Date Activated Date Inactivated Comments 12/02/2006 12:32 AM 12/02/2006 1:38 AM * Full Code Date Activated Date Inactivated Comments 12/01/2006 8:54 PM 12/02/2006 12:32 AM Care Teams Natural Sciences Department Chair Relationship Specialty Start Date End Date Simba Black MD [address] [place] [address] PCP - General Family Practice 09/16/17 Petra Hernandez MD [address] [place] [address] Family Practice 01/21/23
--- OUTSIDE RECORDS SUMMARY | 2024-10-12 05:51 | XMS_ITS | Encounter Summary ---
Author Organization [facility] Address [address] [place] [address]. [place] [address] Care Team Providers Care Parole Director Name Role Phone Unavailable Primary Care Provider Unavailabl e Encounter Details Date Type Department Care Team (Late st Contact Info) Description 02/21/2009 1:58 PM CDT [facility] in [facility] [address] [place] [phone] Dorota [place] [address] Social History Tobacco Use Types Packs/Day Years Used Date Smoking Tobacco: Never Alcohol Use Standard Drinks/Week Comments No 0 (1 standard drink = 0.6 oz pur e alcohol) Comments Unknown Sex and Gender Information Value Date Recorded Sex Assigned at Not on file Legal Sex Female 4:54 AM DEVOPS Gender Identity Not on file Sexual Orientation Not on file 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
--- OUTSIDE RECORDS SUMMARY | 2024-10-12 05:51 | XMS_ITS | Encounter Summary ---
Author Organization [facility] Address [address] [place] [address]. [place] [address] Care Team Providers Care Credit Professional Name Role Phone Unavailable Primary Care Provider Unavailabl e Encounter Details Date Type Department Care Team (Late st Contact Info) Description 09/04/2008 4:57 PM [facility] in [address] [phone] Amaury Jose MD [address] [place] [phone] Social History Tobacco Use Types Packs/Day Years Used Date Smoking Tobacco: Never Alcohol Use Standard Drinks/Week Comments No 0 (1 standard drink = 0.6 oz pur e alcohol) Comments Unknown Sex and Gender Information Value Date Recorded Sex Assigned at Not on file Legal Sex Female 4:54 AM PROCESS SAFETY ENGINEER Gender Identity Not on file Sexual Orientation Not on file 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
--- OUTSIDE RECORDS SUMMARY | 2024-10-12 05:51 | XMS_ITS | Encounter Summary ---
Author Organization [facility] Address [address] [place] [address]. [place] [address] Care Team Providers Care Watch Assembly Instructor Name Role Phone No Ref-Primary, Physician Primary Care Provider Encounter Details Date Type Department Care Team (Late st Contact Info) Description 02/21/2009 [facility] in [place] Inpatient Dept [address] [place] [phone] Frw, Inpatient Provider Social History Tobacco Use Types Packs/Day Years Used Date Smoking Tobacco: Never Alcohol Use Standard Drinks/Week Comments No 0 (1 standard drink = 0.6 oz pur e alcohol) Comments Unknown Sex and Gender Information Value Date Recorded Sex Assigned at Not on file Legal Sex Female 4:54 AM ABSTRACT SEARCHER Gender Identity Not on file Sexual Orientation Not on file 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
--- OUTSIDE RECORDS SUMMARY | 2024-10-12 05:51 | XMS_ITS | Encounter Summary ---
Author Organization [place] Address [address] [place] [address]. [place] [address] Care Team Providers Care Hand Stapler Name Role Phone Unavailable Primary Care Provider Unavailabl e Encounter Details Date Type Department Care Team (Late st Contact Info) Description 10/28/2008 10:13 AM [facility] in [address] [phone] Stacey Nash MD [facility] [place] [address] Social History Tobacco Use Types Packs/Day Years Used Date Smoking Tobacco: Never Alcohol Use Standard Drinks/Week Comments No 0 (1 standard drink = 0.6 oz pur e alcohol) Comments Unknown Sex and Gender Information Value Date Recorded Sex Assigned at Not on file Legal Sex Female 4:54 AM PRIMARY SPECIAL EDUCATOR Gender Identity Not on file Sexual Orientation Not on file 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
--- OUTSIDE RECORDS SUMMARY | 2024-10-12 05:51 | XMS_ITS | Encounter Summary ---
Author Organization [place] Address [facility] [place] [address] Care Team Providers Care Frontload Driver Name Role Phone Unavailable Primary Care Provider Unavailabl e Encounter Details Date Type Department Care Team (Late st Contact Info) Description 09/28/2008 12:23 PM [facility] in [facility] [address] [place] [address] [phone] Marbella Dupree MD [facility] [address] [place] [address] Social History Tobacco Use Types Packs/Day Years Used Date Smoking Tobacco: Never Alcohol Use Standard Drinks/Week Comments No 0 (1 standard drink = 0.6 oz pur e alcohol) Comments Unknown Sex and Gender Information Value Date Recorded Sex Assigned at Not on file Legal Sex Female 4:54 AM TELECOMMUNICATOR Gender Identity Not on file Sexual Orientation Not on file 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
--- OUTSIDE RECORDS SUMMARY | 2024-10-12 05:51 | XMS_ITS | Encounter Summary ---
Author Organization [place] Address [address] [place] [address]. [place] [address] Care Team Providers Care Cardiovascular Lab Director Name Role Phone Unavailable Primary Care Provider Unavailabl e Encounter Details Date Type Department Care Team (Late st Contact Info) Description 10/07/2008 4:27 PM [facility] in [facility] [address] [place] [address] [phone] Cecilia Pitts NP [address] [place], [place] [id number] Social History Tobacco Use Types Packs/Day Years Used Date Smoking Tobacco: Never Alcohol Use Standard Drinks/Week Comments No 0 (1 standard drink = 0.6 oz pur e alcohol) Comments Unknown Sex and Gender Information Value Date Recorded Sex Assigned at Not on file Legal Sex Female 4:54 AM MUD BOSS Gender Identity Not on file Sexual Orientation Not on file 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
--- OUTSIDE RECORDS SUMMARY | 2024-10-12 05:51 | XMS_ITS | Referral Summary ---
Author Organization [place] Address [facility] [place] [address] Care Team Providers Care Bed And Breakfast Operator Name Role Phone No Ref-Primary, Physician Primary [...] other high-risk 008 Overview (06/23/2015): Labs from [place]: Blood type O positive, HIV/Hepb/HIV: negative, Rubella: [...] trivalent, live 10/17/1995,05/23/1992,06/29,02/24/1991 TD,PF 7+ ([facility]) 08/19/2003 Social History Tobacco Use Types Packs/Day Years Used Date Smoking Tobacco: Never Alcohol Use Standard Drinks/Week Comments No 0 (1 standard drink = 0.6 oz pur e alcohol) Adolescent Education Answer Date Record ed Getting School Help Needed Not on file 07/08 Comments Unknown Sex and Gender Information Value Date Recorded Sex Assigned at Not on file Legal Sex Female 4:54 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 RESIDENTIAL DRIVER Gender Identity Not on file Sexual Orientation [...] lb 6.4 oz) 09/17/2017 2:39 A M FRONT LOADER RESIDENTIAL DRIVER Height 157.5 cm (5' 2) 09/17/2017 2:39 AM FRONT LOADER RESIDENTIAL DRIVER Body Mass Index 38.67 09/17/2017 2:39 AM FRONT LOADER RESIDENTIAL DRIVER Plan of Treatment Not on file Procedures Procedure Name Priority Date/Time Associated Diagnosis Comments HCL PAP THIN LAYER SCREEN Routine 09/07/2008 12:00 AM FRONT LOADER RESIDENTIAL DRIVER Care from Last 3 Months or Most Recently Relevant to Health Maintenance Results * A THIN LAYER PAP SCREEN (09/07/2008 12:00 AM FRONT LOADER RESIDENTIAL DRIVER) PAP CK Perla Report Patient Name: SHAWANDA ROMERO MR#: [id number] Specimen #: [id number] Collected: 09/07/2008 Received: 09/08/2008 Reported: 09/09/2008 11:12 Ordering Phy(s): RENÉ DUPREE SPECIMEN/STAIN PROCESS: Pap thin layer prep screening ([facility]) Pap-Cyto x 1, Reflex HPV x 1 SOURCE: Cervical, endocervical Pap thin layer prep screening ([facility]) SPECIMEN ADEQUACY: Satisfactory for evaluation. -Transformation zone component present. CYTOLOGIC INTERPRETATION: Negative for Intraepithelial Lesion or Malignancy Electronically signed out by: ASHLEY Tolbert (ASCP) Processed at [facility], screened at [facility] CLINICAL HISTORY: LMP: no lmp recorded , TESTING LAB LOCATION: [address] [address] COLLECTION SITE: Client: [facility] Location: FRWOB (W) COPATH 09/07/2008 09/08/2008 8:2 9 AM FRONT LOADER RESIDENTIAL DRIVER us René Dupree MD LABORATORY Final Re sult COPATH from Last 3 Months or Most Recently Relevant to Health Maintenance Advance Directives For more information, please contact: [phone] * Full Code (Latest Code Status on File) Date Activated Date Inactivated Comments 09/18/2017 12:21 PM 02/08/2023 12:50 AM * Full Code Date Activated Date Inactivated Comments 09/17/2017 2:44 AM 09/18/2017 12:21 PM Care Teams Bed And Breakfast Operator Relationship Specialty Start Date End Date No Ref-Primary, Physician PCP - General 09/16/17
[2024-10-12 05:58] VITALS: BP 128/78; PULSE 118; RESP 20; TEMP 36.9; O2SAT 97; BMI 38.4
[2024-10-12 06:31] LABS: Strep A DNA Probe* NOT DETECTED (Not Detectd)
[2024-10-12 06:32] VITALS: TEMP 36.9
[2024-10-12] MEDS: IBUPROFEN 200 MG TABLET 600 MG PO (06:32)
--- NOTE | 2024-10-12 06:42 | ED_ITS ---
HPI - General Adult General Chief complaint: Sore Throat Stated complaint: sore throat Time Seen by Provider: 10/12/24 06:12 Source: patient Mode of arrival: ambulatory Limitations: no limitations History of Present Illness HPI narrative: 33-year-old female reports 3 and half days of sore throat, fever up to 102 at home, mild cough scratchy voice and congestion. Decreased appetite. No nausea or vomiting. Tried taking Tylenol last night, 9 hours ago. Son has similar symptoms that started a few days later. No severe shortness of breath. Fevers started to decrease. History of exercise-induced asthma. No obvious illness exposures but there are lot of things going around in the community. Not immunocompromised. No history of cardiopulmonary surgery. Denies chance of , status post tubal ligation. States her past medical history is benign, denies long-term health problems. No allergies. Only surgery is a tubal ligation. Nonsmoker. ROS is notable for the respiratory in generalized symptoms as above, otherwise denies times 12 systems. Related Data Home Medications ?Medication ?Instructions ?Recorded ?Confirmed albuterol 90 mcg/actuation aerosol 1 mcg inhalation .2 puff PRN 06/04/22 09/09/23 inhaler vit no.95-ferrous 1 tab PO DAILY 01/23/23 09/09/23 fumarate 28 mg-folic acid 800 mcg tablet () Previous Rx's ?Medication ?Instructions ?Recorded acetaminophen 500 mg tablet 1,000 mg (2 x 500 mg) PO Q6H PRN 09/12/23 #40 tabs ibuprofen 600 mg tablet 600 mg PO Q6H PRN #40 tabs 09/12/23 oxycodone 5 mg tablet 5 mg PO Q4H PRN 4 OR GREATER ON 09/12/23 PAIN SCALE #10 tabs Allergies Allergy/AdvReac Type Severity Reaction Status Date / Time aspartame Allergy Severe Shuts Down Verified 09/09/23 21:01 Nervous System PFSH PFSH Medical History (normal spontaneous vaginal delivery) ?O80 - Encounter for full-term uncomplicated delivery (ICD-10) Positive GBS test ?B95.1 - Streptococcus, group B, as the cause of diseases classified elsewhere (ICD-10) Gestational diabetes ?O24.419 - Gestational diabetes mellitus in , unspecified control (I CD-10) History of abnormal cervical Pap smear ?Z87.42 - Personal history of other diseases of the female genital tract (ICD-10) History of gestational diabetes ?Z86.32 - Personal history of gestational diabetes (ICD-10) History of delivery ?Z87.51 - Personal history of pre-term labor (ICD-10) History of vaginal delivery Active asthma ?J45.909 - Unspecified asthma, uncomplicated (ICD-10) Surgical History History of wisdom tooth extraction ?K08.409 - Partial loss of teeth, unspecified cause, unspecified class (ICD- 10) History of colposcopy (04/22/09) ?Z98.890 - Other specified postprocedural states (ICD-10) Family History Other Breast cancer Diabetes High blood pressure Social History What is your current living situation?: I presently have a place to live Problems where you live: no known problems In the past 12 months, utilities in danger of being shut off: no In past 12 months, lack of transportation kept you from medical appts, meetings, work, or getting things needed for daily living: no In the past 12 mos, have been you worried that your food would run out before you had money to buy more?: never true In the past 12 mos, the food you bought just didn't last and you didn't have money to buy more?: never true Smoking Status: Former smoker What tobacco products do you use: cigarettes Smoking quit date/years: <= 15 years ago Do you use any of these nicotine containing products: None Second hand tobacco smoke exposure: No How often do you have a drink containing alcohol: never How often do you have six or more drinks on one occasion: Never AUDIT-C Alcohol total score: 0 Non-prescribed substance use: denies use How often does anyone, including family, friends and others, physically hurt you : never How often does anyone, including family, friends and others, insult or talk down to you: never How often does anyone, including family, friends and others, threaten you with harm: never How often does anyone, including family, friends and others, scream or curse at you: never service: No Exam Const: Vital Signs, click to edit/add: Vital Signs - 24 hr 10/12/24 05:58 10/12/24 06:32 Temperature 98.4 F 98.4 F Pulse Rate [Pulse Oximeter] 118 H Respiratory Rate 20 Blood Pressure [Ri ght Upper Arm] 128/78 Pulse Oximetry 97 Documenting provider has reviewed patient's vital signs: yes Common normals: no apparent distress General appearance: cooperative, comfortable and well kempt HENMT: Common normals: normocephalic, TM's normal bilaterally, moist oral mucous membranes and oropharynx normal Head and scalp: normocephalic Tympanic membrane: TM's normal bilaterally Mouth: oral and palatal mucosa normal Eye: Common normals: conjunctivae normal General eye: normal appearance of both eyes Conjunctiva: conjunctiva(e) normal Neck & C-Spine: Common normals: full ROM and no lymphadenopathy Resp: Common normals: normal respiratory effort, no use of accessory muscles and clear to auscultation bilaterally Effort & inspection: able to speak in complete sentences Auscultation: clear to auscultation bilaterally Cardio: Common normals: regular rate, regular rhythm, S1 normal heart sound, S2 normal heart sound and no murmurs Rate: regular rate Rhythm: regular rhythm Heart sounds: S1 normal and S2 normal Extremity: Common normals: normal to inspection and no pedal edema Psych: Common normals: speech normal Appearance: well kempt Attitude: engaged Activity/motor behavior: appropriate eye contact Speech: normal speech Mood and affect: euthymic mood Skin: Common normals: no rashes or lesions noted General skin exam: no rashes or lesions noted Course Course ED Course: 33-year-old female with malaise, fatigue, cough, sore throat and body aches suspicious for influenza. Symptomatic now for well over 48 hours, unlikely benefit from Tamiflu. Swabs for influenza, COVID, RSV and strep collected. Will give ibuprofen 600 mg p.o. x1 while we await findings. No signs of sepsis or other severe illness. Taking fluids well. Reevaluation(s) Time of Reevaluation #1: 06:57 Reevaluation #1: Counseled mom and son on positive COVID findings. This does fit with her ill ness. There are no signs of complication. Ibuprofen was given. Counseled on Tylenol and ibuprofen. Off work for another 2 days, total of 5 days off for illness as per current protocol. Alarm symptoms reviewed that would warrant ED presentation. Not in the window for antivirals can be offered. Written instructions provided. Vital Signs Vital signs: Initial Vital Signs Temperature 98.4 F 10/12/24 05:58 Temperature Source Temporal Artery Scan 10/12/24 05:58 Pulse Rate 118 H 10/12/24 05:58 Respiratory Rate 20 10/12/24 05:58 Respiratory Effort Normal, Spontaneous, Non-Labored 10/12/24 05:58 Respiratory Depth Normal 10/12/24 05:58 Respiratory Pattern Normal 10/12/24 05:58 Blood Pressure 128/78 10/12/24 05:58 Blood Pressure Mean 94 10/12/24 05:58 Blood Pressure Position Sitting 10/12/24 05:58 Pulse Oximetry 97 10/12/24 05:58 Vital Signs Temperature 98.4 F 10/12/24 05:58 Pulse Rate 118 H 10/12/24 05:58 Respiratory Rate 20 10/12/24 05:58 Blood Pressure 128/78 10/12/24 05:58 Pulse Oximetry 97 10/12/24 05:58 Temperature 98.4 F 10/12/24 06:32 Pulse Rate 118 H 10/12/24 05:58 Respiratory Rate 20 10/12/24 05:58 Blood Pressure 128/78 10/12/24 05:58 Pulse Oximetry 97 10/12/24 05:58 Medications Administered Medications: Discontinued Medications Generic Name Dose Route Start Last Admin Trade Name Freq PRN Reason Stop Dose Admin Ibuprofen 600 mg 10/12/24 06:28 10/12/24 06:32 Ibuprofen 200 Mg Tablet PO 10/12/24 06:29 600 mg ONCE ONE Administration Medical Decision Making Lab Data Lab results reviewed: Yes I reviewed the patient's lab results Lab results narrative: COVID positive Labs: Lab Results 10/12/24 Range/Units 05:55 SARS-CoV-2 (PCR) POSITIVE SARS-CoV-2 A (Negative) Influenza Type A (PCR) Negative PCR FLU A (Negative) Influenza Type B (PCR) Negative PCR FLU B (Negative) RSV (PCR) Negative PCR RSV (Negative) Group A Strep DNA NOT DETECTED (Not Detectd) Discharge Plan Discharge Clinical Impression: COVID Patient Disposition: Home, Self-Care Condition: Stable Instructions: COVID-19 (Coronavirus Disease 2019) (ED) Additional Instructions: As discussed, your swabs are positive for COVID. Negative for influenza a, strep and RSV. Your symptoms do fit with this illness. Expect body aches, high fever, sore throat, fatigue and cough. There are no signs of complications. Please use Tylenol 1000 mg every 6 hours and or ibuprofen 600 mg every 6 hours as needed for body aches, headache. Continue to push fluids. Based on your symptoms starting Friday, you would be cleared to return to work on . Any severe shortness of breath, persistent vomiting or severe weakness would warrant an emergency room visit. You are out of a window where antiviral medications would be useful. Activity Level: Activity as Tolerated Discharge Diet: Regular Prescriptions: No Action PNV cmb#95-ferrous fumarate-FA [] 28 mg iron- 800 mcg tablet 1 tab PO DAILY albuterol 90 mcg/actuation aerosol 1 mcg inhalation .2 puff PRN acetaminophen 500 mg Tablet 1,000 mg PO Q6H PRNQty: 40 0RF ibuprofen 600 mg Tablet 600 mg PO Q6H PRNQty: 40 0RF oxycodone 5 mg Tablet 5 mg PO Q4H PRN (Reason: 4 OR GREATER ON PAIN SCALE) Qty: 10 0RF Follow Up/Referrals: Simba Black MD [Primary Care Provider] - Stand Alone Forms: [employer] Info Instructions
[2024-10-12 06:44] LABS: PCR FLU A Negative PCR FLU A (Negative); PCR FLU B Negative PCR FLU B (Negative); PCR RSV Negative PCR RSV (Negative); SARS PCR* POSITIVE SARS-CoV-2 (Negative)
--- OUTSIDE RECORDS SUMMARY | 2024-10-12 07:00 | XMS_ITS | Encounter Summary ---
Author Organization [place] Address [address] [place] [address]. [place] [address] Care Team Providers Care Traffic Control Specialist Name Role Phone Unavailable Primary Care Provider Unavailabl e Encounter Details Date Type Department Care Team (Late st Contact Info) Description 10/28/2008 10:13 AM [facility] in [address] [phone] Stacey Nash MD [facility] [place] [address] Social History Tobacco Use Types Packs/Day Years Used Date Smoking Tobacco: Never Alcohol Use Standard Drinks/Week Comments No 0 (1 standard drink = 0.6 oz pur e alcohol) Comments Unknown Sex and Gender Information Value Date Recorded Sex Assigned at Not on file Legal Sex Female 4:54 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
--- OUTSIDE RECORDS SUMMARY | 2024-10-12 07:00 | XMS_ITS | Referral Summary ---
Author Organization [place] Address [facility] [place] [address] Care Team Providers Care Developmental Training Counselor Name Role Phone No Ref-Primary, Physician Primary [...] other high-risk 008 Overview (06/23/2015): Labs from [place]: Blood type O positive, HIV/Hepb/HIV: negative, Rubella: [...] on file Legal Sex Female 4:54 AM LABELLING MACHINE OPERATOR Gender Identity Not on file Sexual Orientation [...] lb 6.4 oz) 09/17/2017 2:39 A M LABELLING MACHINE OPERATOR Height 157.5 cm (5' 2) 09/17/2017 2:39 AM LABELLING MACHINE OPERATOR Body Mass Index 38.67 09/17/2017 2:39 AM LABELLING MACHINE OPERATOR Plan of Treatment Not on file Procedures Procedure Name Priority Date/Time Associated Diagnosis Comments HCL PAP THIN LAYER SCREEN Routine 09/07/2008 12:00 AM LABELLING MACHINE OPERATOR Care from Last 3 Months or Most Recently Relevant to Health Maintenance Results * A THIN LAYER PAP SCREEN (09/07/2008 12:00 AM LABELLING MACHINE OPERATOR) PAP CK Perla Report Patient Name: SHAWANDA ROMERO MR#: [id number] Specimen #: [id number] Collected: 09/07/2008 Received: 09/08/2008 Reported: 09/09/2008 11:12 Ordering Phy(s): RENÉ DUPREE SPECIMEN/STAIN PROCESS: Pap thin layer prep screening ([facility]) Pap-Cyto x 1, Reflex HPV x 1 SOURCE: Cervical, endocervical Pap thin layer prep screening ([facility]) SPECIMEN ADEQUACY: Satisfactory for evaluation. -Transformation zone component present. CYTOLOGIC INTERPRETATION: Negative for Intraepithelial Lesion or Malignancy Electronically signed out by: ASHLEY Tolbert (ASCP) Processed at [facility], screened at [facility] CLINICAL HISTORY: LMP: no lmp recorded , TESTING LAB LOCATION: [address] [address] COLLECTION SITE: Client: [facility] Location: FRWOB (W) COPATH 09/07/2008 09/08/2008 8:2 9 AM LABELLING MACHINE OPERATOR us René Dupree MD LABORATORY Final Re sult COPATH from Last 3 Months or Most Recently Relevant to Health Maintenance Advance Directives For more information, please contact: [phone] * Full Code (Latest Code Status on File) Date Activated Date Inactivated Comments 09/18/2017 12:21 PM 02/08/2023 12:50 AM * Full Code Date Activated Date Inactivated Comments 09/17/2017 2:44 AM 09/18/2017 12:21 PM Care Teams Developmental Training Counselor Relationship Specialty Start Date End Date No Ref-Primary, Physician PCP - General 09/16/17
--- OUTSIDE RECORDS SUMMARY | 2024-10-12 07:00 | XMS_ITS | Encounter Summary ---
Author Organization [place] Address [facility] [place] [address] Care Team Providers Care Differential Specialist Name Role Phone Unavailable Primary Care Provider Unavailabl e Encounter Details Date Type Department Care Team (Late st Contact Info) Description 09/28/2008 12:23 PM [facility] in [facility] [address] [place] [address] [phone] Marbella Dupree MD [facility] [address] [place] [address] Social History Tobacco Use Types Packs/Day Years Used Date Smoking Tobacco: Never Alcohol Use Standard Drinks/Week Comments No 0 (1 standard drink = 0.6 oz pur e alcohol) Comments Unknown Sex and Gender Information Value Date Recorded Sex Assigned at Not on file Legal 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
--- OUTSIDE RECORDS SUMMARY | 2024-10-12 07:00 | XMS_ITS | Continuity of Care Document ---
Author Name [facility] User [facility] Address Unknown Organization Unknown Address Unknown Procedures FILTER APPLIED:Only known Procedures with Onset Date within the last 5 years Procedure Date Procedure Provider Lashonda kern Information Status HEMOGLOBIN (78008) Compl eted ANESTH TUBAL LIGATION (68860) Completed INSERT CERVICAL DILATOR (75585) Completed NEURAXL LBR ANES VAG DLVR (88173) Completed ROUTINE VENIPUNCTURE (40513) Completed BLOOD TYPING SEROLOGIC ABO (28059) Completed RBC ANTIBODY SCREEN (40668) Completed BLOOD TYPING SEROLOGIC RH(D) (97625) Completed COMPLETE CBC W/AUTO DIFF WBC (04020) Completed OFFICE O/P EST LOW 20 MIN (58853) Completed STREP B DNA AMP PROBE (33651) Completed CULTURE SCREEN ONLY (25176) Completed URINE CULTURE/COLONY COUNT (18409) Completed NON-STRESS TEST (82122) Completed SMEAR WET MOUNT SALINE/INK (11276) Completed URINALYSIS AUTO W/O SCOPE (63320) Completed MICROSCOPIC EXAM OF URINE (39148) Completed X-RAY EXAM OF FEMUR 2/> (65885) Completed EMERGENCY DEPT VISIT LOW MDM (77128) Completed Encounters FILTER APPLIED:Only known Encounters with Admission Date within the last 5 years Encounter Location Admission Discharge Billing Code [employer] [facility] [place] [facility] [id number] Drawin Black
--- OUTSIDE RECORDS SUMMARY | 2024-10-12 07:00 | XMS_ITS | Encounter Summary ---
Author Organization [place] Address [address] [place] [address]. [place] [address] Care Team Providers Care Laser Beam Machine Operator Name Role Phone Unavailable Primary Care Provider Unavailabl e Encounter Details Date Type Department Care Team (Late st Contact Info) Description 02/21/2009 1:58 PM CDT [facility] in [facility] [address] [place] [address] [phone] Dorota [place] [address] Social History Tobacco Use Types Packs/Day Years Used Date Smoking Tobacco: Never Alcohol Use Standard Drinks/Week Comments No 0 (1 standard drink = 0.6 oz pur e alcohol) Comments Unknown Sex and Gender Information Value Date Recorded Sex Assigned at Not on file Legal Sex Female 4:54 AM NEWSPAPER EDITOR MANAGING Gender Identity Not on file Sexual Orientation Not on file 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
--- OUTSIDE RECORDS SUMMARY | 2024-10-12 07:00 | XMS_ITS | Encounter Summary ---
Author Organization [place] Address [address] [place] [address]. [place] [address] Care Team Providers Care Wafer Substrate Tester Name Role Phone Unavailable Primary Care Provider Unavailabl e Encounter Details Date Type Department Care Team (Late st Contact Info) Description 09/04/2008 4:57 PM [facility] in [address] [phone] Amaury Jose MD [address] [place] [address] [phone] Social History Tobacco Use Types Packs/Day Years Used Date Smoking Tobacco: Never Alcohol Use Standard Drinks/Week Comments No 0 (1 standard drink = 0.6 oz pur e alcohol) Comments Unknown Sex and Gender Information Value Date Recorded Sex Assigned at Not on file Legal Sex Female 4:54 AM ALLOPATHIC DOCTOR Gender Identity Not on file Sexual Orientation Not on file 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
--- OUTSIDE RECORDS SUMMARY | 2024-10-12 07:00 | XMS_ITS | Clinical Summary ---
Author Organization [place] Address [address] [place] [address]. [place] [address] Care Team Providers Care Supervisor Die Casting Name Role Phone No Ref-Primary, Physician Primary [...] other high-risk 008 Overview (06/23/2015): Labs from [place]: Blood type O positive, HIV/Hepb/HIV: negative, Rubella: [...] on file Legal Sex Female 4:54 AM RISK PROFESSIONAL Gender Identity Not on file Sexual Orientation [...] lb 6.4 oz) 09/17/2017 2:39 A M RISK PROFESSIONAL Height 157.5 cm (5' 2) 09/17/2017 2:39 AM RISK PROFESSIONAL Body Mass Index 38.67 09/17/2017 2:39 AM RISK PROFESSIONAL Plan of Treatment Health Maintenance Due Date [...] THIN LAYER SCREEN Routine 09/07/2008 12:00 AM RISK PROFESSIONAL Care from Last 3 Months or Most Recently Relevant to Health Maintenance Results * A THIN LAYER PAP SCREEN (09/07/2008 12:00 AM RISK PROFESSIONAL) PAP CK Perla Report Patient Name: SHAWANDA ROMERO MR#: [id number] Specimen #: [id number] Collected: 09/07/2008 Received: 09/08/2008 Reported: 09/09/2008 11:12 Ordering Phy(s): RENÉ DUPREE SPECIMEN/STAIN PROCESS: Pap thin layer prep screening (SurePath) Pap-Cyto x 1, Reflex HPV x 1 SOURCE: Cervical, endocervical Pap thin layer prep screening (SurePath) SPECIMEN ADEQUACY: Satisfactory for evaluation. -Transformation zone component present. CYTOLOGIC INTERPRETATION: Negative for Intraepithelial Lesion or Malignancy Electronically signed out by: ASHLEY Tolbert (ASCP) Processed at [facility], [place], screened at [facility] CLINICAL HISTORY: LMP: no lmp recorded , TESTING LAB LOCATION: [address] [place] [id number] COLLECTION SITE: Client: [facility] Location: FRWOB (W) COPATH 09/07/2008 09/08/2008 8:2 9 AM RISK PROFESSIONAL us René Dupree MD LABORATORY Final Re sult COPATH from Last 3 Months or Most Recently Relevant to Health Maintenance Advance Directives For more information, please contact: [phone] * Full Code (Latest Code Status on File) Date Activated Date Inactivated Comments 09/18/2017 12:21 PM 02/08/2023 12:50 AM * Full Code Date Activated Date Inactivated Comments 09/17/2017 2:44 AM 09/18/2017 12:21 PM Care Teams Supervisor Die Casting Relationship Specialty Start Date End Date No Ref-Primary, Physician PCP - General 09/16/17
--- OUTSIDE RECORDS SUMMARY | 2024-10-12 07:00 | XMS_ITS | Encounter Summary ---
Author Organization [place] Address [address] [place] [address]. [place] [address] Care Team Providers Care Barrel Endshaker Adjuster Name Role Phone No Ref-Primary, Physician Primary Care Provider Encounter Details Date Type Department Care Team (Late st Contact Info) Description 02/21/2009 [facility] in [place] Inpatient Dept [address] [place] [phone] Frw, Inpatient Provider Social History Tobacco Use Types Packs/Day Years Used Date Smoking Tobacco: Never Alcohol Use Standard Drinks/Week Comments No 0 (1 standard drink = 0.6 oz pur e alcohol) Comments Unknown Sex and Gender Information Value Date Recorded Sex Assigned at Not on file Legal Sex Female 4:54 AM INTERNET RESEARCHER Gender Identity Not on file Sexual Orientation Not on file 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
--- OUTSIDE RECORDS SUMMARY | 2024-10-12 07:00 | XMS_ITS | Encounter Summary ---
Author Organization [place] Address [address] [place] [address]. [place] [address] Care Team Providers Care Oracle Sql Developer Name Role Phone Unavailable Primary Care Provider Unavailabl e Encounter Details Date Type Department Care Team (Late st Contact Info) Description 10/07/2008 4:[address] 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
--- OUTSIDE RECORDS SUMMARY | 2024-10-12 07:00 | XMS_ITS | Clinical Summary ---
Author Organization [facility] Address [place], [place] [address] Care Team Providers Care Cook Cashier Food Prep Name Role Phone Simba Black MD Primary Care Provider [phone] Petra Hernandez MD Unavailable [phone] Allergies Active Allergy Reactions Criticality Noted Date [...] I just received a call from the [facility] Child Protection business case analyst. She did not give details other than when the patient delivers, we need to call the [facility] Crisis line [phone]. We can call 14/04, 7 days a [...] (from 06/04/17 to present) Problem Noted Resolved [facility] consult: 17P 08/25/2017 by Radha Cleveland RN No Overview Addendum 10/30/2017 3:20 PM by Jacqueline Sanchez RN [facility] CONSULTATION REASON FOR CONSULT: Weekly 17p injections [...] ultrasounds/testing. SPECIALISTS/PHONE: [facility]: CARE COORDINATION: GENETICS: 07/31/17 [place] PROCEDURES: PERTINENT LABS: 06/04/17: TP: negative, Hgb [...] delivery in second trimester, antepartum 08/28/2017 07/15/2023 [facility] consult: 17P 08/25/2017 Overview (01/05/2018): [facility] CONSULTATION REASON FOR CONSULT: Weekly 17p injections [...] ultrasounds/testing. SPECIALISTS/PHONE: [facility]REGOR: CARE COORDINATION: GENETICS: 07/31/17 [place] PROCEDURES: PERTINENT LABS: 06/04/17: TP: negative, Hgb [...] Mother Heart Disease Other cousin-paternal Great uncle --MD<50 yrs. old Cancer-breast Paternal Grandmother Good Health [...] on file Legal Sex Female 5:19 AM MACARONI PRESS OPERATOR Gender Identity Not on file Sexual [...] g 7 9 Andrzej felto vic Delivery Location:[facility] 2007 36w 0d 8h 00m/ 3.18 kg (7 lb) M Vag Y Neona ivy Demis e Rene las Complications:None Living Status Comments: at 18 months of age Delivery Location:[place], [place] 2008 Term 38w 1d 3.49 kg (7 lb 11 oz) M Vag Y Livin g 8 9 Fito ROLLINS, ANIYA Mosquera Complications:None Delivery Location:[facility] (IP) Comments:Anemia 2017 Term VAGINA [...] (222 lb 9.6 oz) 10/28/2023 3:30 PM MACARONI PRESS OPERATOR Height 159.4 cm (5' 2.76) 08/26/2023 11:[address] Body Mass Index 39.74 08/26/2023 11:46 AM MACARONI PRESS OPERATOR Plan of Treatment Health Maintenance Due Date [...] 07/01/2033 07/01/2023, 10/24, 06/29/2010 (Completed outside of [facility]), Additional history exists HIV for age 15-65 [...] supervision of other normal in first trimester QUALITY ASSURANCE ADVISOR THIN PREP PAP SCREEN IMAGED Routine 01/12/2021 9:12 AM CDT Pap smear for cervical cancer screening from Last 3 Months or Most Recently Relevant to Health Maintenance Results * LC HCV ANTIBODY RFX TO QUANT PCR (01/21/2023 2:45 PM CDT) Pathologist [facility] HCV Ab Non Reactive Non Reactive 01/23/2023 2:[address] [facility]) Blood BLOOD SPECIMEN / Unknown Venipuncture / Unknown 01/21/2023 2:45 PM CDT 01/21/2023 2:51 PM CDT [facility] TESTING ([facility]) - 01/23/2023 2:08 PM CDT Performed at: [address] [place] [address] [id number] Mail Handler Equipment Operator: Houston Muse MD, Phone: [phone] Petra Hernandez MD LABORATORY Final Resul t [facility] ([facility]) [address] [place] [address], * LC HIV-1/O/2, 4TH GENERATION (01/21/2023 2:45 PM CDT) [facility] HIV Scr 4th Gen Non Reactive Non Reactive 01/23/2023 2:[address] [facility]) Comment: HIV Negative HIV-1/HIV-2 antibodies and HIV-1 p24 antigen were NOT detected. There is no laboratory evidence of HIV infection. Blood BLOOD SPECIMEN / Unknown Venipuncture / Unknown 01/21/2023 2:45 PM CDT 01/21/2023 2:51 PM CDT [facility] FOR [facility] TEST[facility] ([facility]) - 01/23/2023 2:09 PM CDT Performed at: [facility] [place] [phone] Mail Handler Equipment Operator: Houston Muse MD, Phone: [phone] us Petra Hernandez MD LABORATORY Final Resul t [facility]) [address] [place] [address], * QUALITY ASSURANCE ADVISOR THIN PREP PAP SCREEN IMAGED (01/12/2021 9:12 AM CDT) Case Report Gynecologic Cytology Report Case: [id number] Authorizing Provider: Simba Black MD Collected: 01/12/2021 0912 Ordering Location: [facility] Received: 01/12/2021 0922 Clinic First Screen: [facility] [place] Specimen: QUALITY ASSURANCE ADVISOR ThinPrep Vial Screening, Cervical 01/23/2021 1:50 PM CDT [facility]- ENTRAL LABORATORY INTERPRETATION/ RESULT NEGATIVE FOR INTRAEPITHELIAL LESION OR MALIGNANCY (NIL) (none) 01/23/2021 1:50 PM CDT [facility] ENTRAL LABORATORY IMEN ADEQUACY Satisfactory for evaluation Endocervical component present 01/23/2021 1:50 PM CDT [facility] ENTRAL LABORATORY HPV REQUEST HPV and PAP 01/23/2021 1:50 PM CDT [facility]ORAT[facility]-C ENTRAL LABORATORY Date of LMP unknown 01/23/2021 1:50 PM [facility]T [facility] Last Pap Date 05/04/18 01/23/2021 1:50 PM CDT [facility]AL LABORATORY Last Pap Result NIL 1:50 PM CDT [facility]AL LABORATORY Abnormal Pap or Morgan Bx in last 5 years No 01/23/2021 1:50 PM CDT [facility] LABOR[facility]-C ENTRAL LABORATORY Menstrual Status Hormonally Suppressed 01/23/2021 1:50 PM CDT [facility] ENTRAL LABORATORY Morgan Bx Done Today No 01/23/2021 1:50 PM CDT [facility] ENTRAL LAB[facility]ORY Additional Information None given 01/23/2021 1:50 PM CDT [facility] Comment: Cytology is screened at [facility] - [address], [place] [address] [facility] - [address] [place] [address], [place] [address] and [facility] - [address] [place] [address] Interpreted at [facility] - [address] [place] [address], [place] [address] Automated Review Successful 01/23/2021 1:50 PM CDT [facility]- ENTRAL LABORATORY Comment:Specimen processed s uccessfully by automated medical policy specialist device, [employer] Imaging System, [email or web address] ANCILLARY TESTING QUALITY ASSURANCE ADVISOR HPV Ordered, Please see separate report 01/23/2021 1:50 PM CDT [facility]- ENTRME LABORATORY Note The pap test is a [...] and malignant lesions. 01/23/2021 1:50 PM CDT [facility] LAB[facility] Other (Cervical) Non-Blood / Unknown 01/12/2021 9:12 AM CDT 01/12/2021 9:22 AM CDT us Simba Black MD PATHOLOGY/CYTOLOGY Final R esult [facility] [address] [place] [address], [place] from Last 3 Months or Most Recently Relevant to Health Maintenance Insurance [facility] Advance Directives * Full Code (Latest Code [...] 8:54 PM 12/02/2006 12:32 AM Care Teams Cook Cashier Food Prep Relationship Specialty Start Date End Date Simba Black MD [address] [place] [address] PCP - General Family Practice 09/16/17 Petra Hernandez MD [address] [place] [address] Family Practice 01/21/23
== END 2024-10-12 07:01 | disposition home or self-care (01) ==
LOC: ED 06:58
PROVIDERS: Emergency Provider Family Medicine; PCP Surgery
DX: U07.1 COVID-19 (principal)
CPT/HCPCS: 87631; 87651; 99283; A9270

== ENCOUNTER 2024-11-11 01:30 | Emergency (ER) | payer BC, SELFPAY ==
--- OUTSIDE RECORDS SUMMARY | 2024-11-11 01:33 | XMS_ITS | Encounter Summary ---
Author Organization [place] Address [address] [place] [address]. [place] [address] Care Team Providers Care Bass String Winder Name Role Phone Unavailable Primary Care Provider Unavailabl e Encounter Details Date Type Department Care Team (Late st Contact Info) Description 02/21/2009 1:58 PM CDT [facility] in [facility] [address] [place] [phone] Dor[place] [address] Social History Tobacco Use Types Packs/Day Years Used Date Smoking Tobacco: Never Alcohol Use Standard Drinks/Week Comments No 0 (1 standard drink = 0.6 oz pur e alcohol) Comments Unknown Sex and Gender Information Value Date Recorded Sex Assigned at Not on file Legal Sex Female 4:54 AM CALIBRATION TESTER Gender Identity Not on file Sexual Orientation Not on file 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
--- OUTSIDE RECORDS SUMMARY | 2024-11-11 01:33 | XMS_ITS | Encounter Summary ---
Author Organization [place] Address [address] [place] [address]. [place] [address] Care Team Providers Care Learning Center Coordinator Name Role Phone No Ref-Primary, Physician Primary Care Provider Encounter Details Date Type Department Care Team (Late st Contact Info) Description 02/21/2009 [facility] in [place] Inpatient Dept [address] [place] [phone] Frw, Inpatient Provider Social History Tobacco Use Types Packs/Day Years Used Date Smoking Tobacco: Never Alcohol Use Standard Drinks/Week Comments No 0 (1 standard drink = 0.6 oz pur e alcohol) Comments Unknown Sex and Gender Information Value Date Recorded Sex Assigned at Not on file Legal Sex Female 4:54 AM VICE PRESIDENT 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
--- OUTSIDE RECORDS SUMMARY | 2024-11-11 01:33 | XMS_ITS | Clinical Summary ---
Author Organization [place] Address [address] [place] [address]. [place] [address] Care Team Providers Care Data Review Specialist Name Role Phone No Ref-Primary, Physician Primary [...] other high-risk 008 Overview (06/23/2015): Labs from [place]: Blood type O positive, HIV/Hepb/HIV: negative, Rubella: [...] 02/23/2001,05/23/1992 OPV, trivalent, live 10/17/1995,05/23/1992,06/29,02/24/1991 TD,PF 7+ ([facility]) 08/19/2003 Family History Medical History Relation Comments [...] on file Legal Sex Female 4:54 AM HANDY WORKER Gender Identity Not on file Sexual Orientation [...] lb 6.4 oz) 09/17/2017 2:39 A M HANDY WORKER Height 157.5 cm (5' 2) 09/17/2017 2:39 AM HANDY WORKER Body Mass Index 38.67 09/17/2017 2:39 AM HANDY WORKER Plan of Treatment Health Maintenance Due Date Last Done Comments ADVANCE CARE PLANNING 1990 ANNUAL REVIEW OF HM ORDERS 1990 PAP 12/21/2011 09/07/2008, 06/02/2008 YEARLY PREVENTIVE VISIT 06/07/2023 06/07/2022, 01/12 COVID-19 Vaccine ( season) 2024 INFLUENZA VACCINE (#1) 2024 7, 07/20/2014, 07/24/2011, Additional history exists PHQ-2 (once per calendar year) 2024 DTAP/TDAP/TD IMMUNIZATION (5 - Td or Tdap) 11/11/2027 11/11/2017, 06/29/2010, 08/19/2003, Additional history exists ZOSTER IMMUNIZATION (1 of 2) 2040 HEPATITIS B IMMUNIZATION Completed 010, 01/18/1999, 01/18/1999, Additional history exists HPV IMMUNIZATION Completed 07/24/2011, 12/2010, 06/29/2010 HEPATITIS C SCREENING Completed 01/21/2023 HIV SCREENING Completed 01/21/2023 MENINGITIS IMMUNIZATION Aged Out No l onger eligible based on patient's age to complete this topic Pneumococcal Vaccine: Pediatrics (0 to 5 Years) and At-Risk Patients (6 to 49 Years) Aged Out No longer eligible based on patient's age to complete this topic Procedures Procedure Name Priority Date/Time Associated Diagnosis Comments HCL PAP THIN LAYER SCREEN Routine 09/07/2008 12:00 AM HANDY WORKER Care from Last 3 Months or Most Recently Relevant to Health Maintenance Results * A THIN LAYER PAP SCREEN (09/07/2008 12:00 AM HANDY WORKER) PAP CK Perla Report Patient Name: SHAWANDA ROMERO MR#: [id number] Specimen #: [id number] Collected: 09/07/2008 Received: 09/08/2008 Reported: 09/09/2008 11:12 Ordering Phy(s): RENÉ DUPREE SPECIMEN/STAIN PROCESS: Pap thin layer prep screening (SurePath) Pap-Cyto x 1, Reflex HPV x 1 SOURCE: Cervical, endocervical Pap thin layer prep screening (SurePath) SPECIMEN ADEQUACY: Satisfactory for evaluation. -Transformation zone component present. CYTOLOGIC INTERPRETATION: Negative for Intraepithelial Lesion or Malignancy Electronically signed out by: ASHLEY Tolbert (ASCP) Processed at [facility], screened at [facility] CLINICAL HISTORY: LMP: no lmp recorded , TESTING LAB LOCATION: [address] [place] [id number] COLLECTION SITE: Client: [facility] Location: FRWOB (W) COPATH 09/07/2008 09/08/2008 8:2 9 AM HANDY WORKER us René Dupree MD LABORATORY Final Re sult [facility] from Last 3 Months or Most Recently Relevant to Health Maintenance Advance Directives For more information, please contact: [phone] * Full Code (Latest Code Status on File) Date Activated Date Inactivated Comments 09/18/2017 12:21 PM 02/08/2023 12:50 AM * Full Code Date Activated Date Inactivated Comments 09/17/2017 2:44 AM 09/18/2017 12:21 PM Care Teams Data Review Specialist Relationship Specialty Start Date End Date No Ref-Primary, Physician PCP - General 09/16/17
--- OUTSIDE RECORDS SUMMARY | 2024-11-11 01:33 | XMS_ITS | Encounter Summary ---
Author Organization [place] Address [address] [place] [address]. [place] [address] Care Team Providers Care Car Escort Name Role Phone Unavailable Primary Care Provider Unavailabl e Encounter Details Date Type Department Care Team (Late st Contact Info) Description 10/28/2008 10:13 AM [facility] in [address] [phone] Stacey Nash MD [facility] [place] [address] Social History Tobacco Use Types Packs/Day Years Used Date Smoking Tobacco: Never Alcohol Use Standard Drinks/Week Comments No 0 (1 standard drink = 0.6 oz pur e alcohol) Comments Unknown Sex and Gender Information Value Date Recorded Sex Assigned at Not on file Legal Sex Female 4:54 AM CHAUFFEUR MOTORBUS Gender Identity Not on file Sexual Orientation Not on file 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
--- OUTSIDE RECORDS SUMMARY | 2024-11-11 01:33 | XMS_ITS | Encounter Summary ---
Author Organization [place] Address [address] [place] [address]. [place] [address] Care Team Providers Care Electroencephalograph Technologist Name Role Phone Unavailable Primary Care Provider Unavailabl e Encounter Details Date Type Department Care Team (Late st Contact Info) Description 10/07/2008 4:27 PM [facility] in [facility] [address] [place] [address] [phone] Cecilia Pitts NP [address] [place], [place] [phone] Social History Tobacco Use Types Packs/Day Years Used Date Smoking Tobacco: Never Alcohol Use Standard Drinks/Week Comments No 0 (1 standard drink = 0.6 oz pur e alcohol) Comments Unknown Sex and Gender Information Value Date Recorded Sex Assigned at Not on file Legal Sex Female 4:54 AM ELECTRONIC 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
--- OUTSIDE RECORDS SUMMARY | 2024-11-11 01:33 | XMS_ITS | Clinical Summary ---
Author Organization [facility] Address [address] [place] [address] Care Team Providers Care Whipper Name Role Phone Simba Black MD Primary Care Provider [phone] Petra Hernandez MD Unavailable [phone] Allergies Active Allergy Reactions Criticality Noted Date [...] I just received a call from the [facility] Child Protection case management manager. She did not give details other than when the patient delivers, we need to call the [facility] Crisis line [phone]. We can call 14/04, 7 days a [...] (from 06/04/17 to present) Problem Noted Resolved [facility] consult: 17P 08/25/2017 by Radha Cleveland RN No Overview Addendum 10/30/2017 3:20 PM by Jacqueline Sanchez RN [facility] CONSULTATION REASON FOR CONSULT: Weekly 17p [...] ultrasounds/testing. SPECIALISTS/PHONE: GREG[facility]: CARE COORDINATION: GENETICS: 07/31/17 [place] PROCEDURES: PERTINENT LABS: 06/04/17: TP: negative, Hgb [...] delivery in second trimester, antepartum 08/28/2017 07/15/2023 [facility] consult: 17P 08/25/2017 Overview (01/05/2018): [facility] CONSULTATION REASON FOR CONSULT: Weekly 17p [...] ultrasounds/testing. SPECIALISTS/PHONE: GREGOR: CARE COORDINATION: GENETICS: 07/31/17 [place] PROCEDURES: PERTINENT LABS: 06/04/17: TP: negative, Hgb A1C: 5.0, O positive, Hgb 13.5 PERTINENT MEDS: PLAN OF CARE: 08/28/17 per [facility] Weekly 17OHP until 36 weeks and every [...] Mother Heart Disease Other cousin-paternal Great uncle --LA<50 yrs. 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76) 08/26/2023 11:[address] Body Mass Index 39.74 08/26/2023 11:46 AM MACHINE JOINER CEMENTER Plan of Treatment Health Maintenance Due Date [...] 07/01/2033 07/01/2023, 10/24, 06/29/2010 (Completed outside of [facility]), Additional history exists HIV for age 15-65 [...] supervision of other normal in first trimester RADIO ADJUSTER THIN PREP PAP SCREEN IMAGED Routine 01/12/2021 9:12 AM CDT Pap smear for cervical cancer screening from Last 3 Months or Most Recently Relevant to Health Maintenance Results * LC HCV ANTIBODY RFX TO QUANT PCR (01/21/2023 2:45 PM CDT) Pathologist [facility] HCV Ab Non Reactive Non Reactive 01/23/2023 2:08 PM CDT [facility] ESOTERIC TESTING (CET) Blood BLOOD SPECIMEN / Unknown Venipuncture / Unknown 01/21/2023 2:45 PM CDT 01/21/2023 2:51 PM CDT Narrative [facility] TEST[facility] (CET) - 01/23/2023 2:08 PM CDT Performed at: [address] [place] [id number] Rn Integrity: Houston Muse MD, Phone: [phone] Petra Hernandez MD LABORATORY Final Resul t [facility] (CET) [address] [place] [address], * LC HIV-1/O/2, 4TH GENERATION (01/21/2023 2:45 PM CDT) Pathologist [facility] HIV Scr 4th Gen Non Reactive Non Reactive 01/23/2023 2:09 PM CDT [facility] ESOTERIC TESTING (CET) Comment: HIV Negative HIV-1/HIV-2 antibodies and HIV-1 p24 antigen were NOT detected. There is no laboratory evidence of HIV infection. Blood BLOOD SPECIMEN / Unknown Venipuncture / Unknown 01/21/2023 2:45 PM CDT 01/21/2023 2:51 PM CDT [facility] FOR ESOTERIC TESTING (CET) - 01/23/2023 2:09 PM CDT Performed at: [facility] [place] [id number] Rn Integrity: Houston Muse MD, Phone: [phone] us Petra Hernandez MD LABORATORY Final Resul t [facility] ([facility]) [address] [place] [address], * RADIO ADJUSTER THIN PREP PAP SCREEN IMAGED (01/12/2021 9:12 AM CDT) Case Report Gynecologic Cytology Report Case: [id number] Authorizing Provider: Simba Black MD Collected: 01/12/2021 0912 Ordering Location: [facility] Received: 01/12/2021 0922 Clinic First Screen: [place] Specimen: RADIO ADJUSTER ThinPrep Vial Screening, Cervical 01/23/2021 1:50 PM CDT [facility]- ENTRAL LABORATORY INTERPRETATION/ RESULT NEGATIVE FOR INTRAEPITHELIAL LESION OR MALIGNANCY (NIL) (none) 01/23/2021 1:50 PM CDT [facility] IMEN ADEQUACY Satisfactory for evaluation Endocervical component present 01/23/2021 1:50 PM CDT [facility] ENTRAL LABORATORY HPV REQUEST HPV and PAP 01/23/2021 1:50 PM CDT [facility] LABORATORY-C ENTRAL LABORATORY Date of LMP unknown 01/23/2021 1:50 PM CDT [facility] EN[facility]AL LAB[facility]AT[facility] Last Pap Date 05/04/18 01/23/2021 1:50 PM CDT [facility]-C ENTRAL LABORATORY Last Pap Result NIL 1:50 PM CDT [employer]ORY[facility] ENTRAL LABORATORY Abnormal Pap or [place] Bx in last 5 years No 01/23/2021 1:50 PM CDT [facility] ENTRAL LABORATORY Menstrual Status Hormonally Suppressed 01/23/2021 1:50 PM CDT [facility] ENTRAL LABORATORY [place] Bx Done Today No 01/23/2021 1:50 PM CDT [facility]TR[facility] LAB[facility] Additional Information None given 01/23/2021 1:50 PM CDT [facility]TRAL LAB[facility]ATORY Comment: Cytology is screened at [facility] - [address], [place] [address] and [facility] - [address] [place], [place] [address] and [facility] - [address] [place] [address] Interpreted at [facility] - [address], [place] [address] Automated Review Successful 01/23/2021 1:50 PM CDT [facility] LABORATORY Comment:Specimen processed s uccessfully by automated rope maker device, ThinPrep Imaging System, [employer] ANCILLARY TESTING RADIO ADJUSTER HPV Ordered, Please see separate report 01/23/2021 1:50 PM CDT [facility] LABORATORY Note The pap test is a [...] and malignant lesions. 01/23/2021 1:50 PM CDT [facility] LABORATORY Other (Cervical) Non-Blood / Unknown 01/12/2021 9:12 AM CDT 01/12/2021 9:22 AM CDT us Simba Black MD PATHOLOGY/CYTOLOGY Final R esult [facility] [address] [place] [address], [place] from Last 3 Months or Most Recently Relevant to Health Maintenance Insurance [employer] Advance Directives * Full Code (Latest Code [...] 8:54 PM 12/02/2006 12:32 AM Care Teams Whipper Relationship Specialty Start Date End Date Simba Black MD [address] [place] [address] PCP - General Family Practice 09/16/17 Petra Hernandez MD [address] [place] [address] Family Practice 01/21/23
--- OUTSIDE RECORDS SUMMARY | 2024-11-11 01:33 | XMS_ITS | Encounter Summary ---
Author Organization [place] Address [address] [place] [address]. [place] [address] Care Team Providers Care Christmas Tree Farmer Name Role Phone Unavailable Primary Care Provider Unavailabl e Encounter Details Date Type Department Care Team (Late st Contact Info) Description 09/28/2008 12:23 PM [facility] [address] [place] [address] [phone] Marbella Dupree MD [facility] [address] [place] [address] Social History Tobacco Use Types Packs/Day Years Used Date Smoking Tobacco: Never Alcohol Use Standard Drinks/Week Comments No 0 (1 standard drink = 0.6 oz pur e alcohol) Comments Unknown Sex and Gender Information Value Date Recorded Sex Assigned at Not on file 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
--- OUTSIDE RECORDS SUMMARY | 2024-11-11 01:33 | XMS_ITS | Encounter Summary ---
Author Organization [place] Address [address] [place] [address]. [place] [address] Care Team Providers Care Supervisory Civil Engineer Name Role Phone Unavailable Primary Care Provider Unavailabl e Encounter Details Date Type Department Care Team (Late st Contact Info) Description 09/04/2008 4:57 PM [facility] in [address] [phone] Amaury Jose MD [address] [place] [phone] Social History Tobacco Use Types Packs/Day Years Used Date Smoking Tobacco: Never Alcohol Use Standard Drinks/Week Comments No 0 (1 standard drink = 0.6 oz pur e alcohol) Comments Unknown Sex and Gender Information Value Date Recorded Sex Assigned at Not on file 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
[2024-11-11 01:37] VITALS: BP 135/84; PULSE 130; RESP 18; TEMP 37.6; O2SAT 95; BMI 40.2
[2024-11-11 02:12] LABS: Strep A DNA Probe* DETECTED (Not Detectd)
--- NOTE | 2024-11-11 02:23 | ED_ITS ---
HPI - General Adult General Chief complaint: Sore Throat Stated complaint: sore throat, eye and ear pain Time Seen by Provider: 11/11/24 02:05 Source: patient Mode of arrival: ambulatory Limitations: no limitations History of Present Illness HPI narrative: 33-year-old female presents the emergency department for evaluation of sinus congestion and sore throat. No known sick contacts. Son with congestion and fussiness. No fever, no shortness of breath, no vomiting. Did not try taking any medications to help with her symptoms prior to coming to the emergency department. Slightly dizzy in the mornings but no signs of severe illness. Not immunocompromised. No prior history of throat surgery. Positive fatigue, is getting some benefit from NyQuil with increased sinus drainage, no productive cough. Past medical history reviewed, no major long-term medications. Nonsmoker. ROS notable for the generalized and HEENT symptoms as above. Otherwise denies times 12 systems. Related Data Home Medications ?Medication ?Instructions ?Recorded ?Confirmed albuterol 90 mcg/actuation aerosol 1 mcg inhalation .2 puff PRN 06/04/22 11/11/24 inhaler vit no.95-ferrous 1 tab PO DAILY 01/23/23 09/09/23 fumarate 28 mg-folic acid 800 mcg tablet () Previous Rx's ?Medication ?Instructions ?Recorded acetaminophen 500 mg tablet 1,000 mg (2 x 500 mg) PO Q6H PRN 09/12/23 #40 tabs ibuprofen 600 mg tablet 600 mg PO Q6H PRN #40 tabs 09/12/23 oxycodone 5 mg tablet 5 mg PO Q4H PRN 4 OR GREATER ON 09/12/23 PAIN SCALE #10 tabs amoxicillin 500 mg capsule 1,000 mg (2 x 500 mg) PO Q12H #38 11/11/24 caps Allergies Allergy/AdvReac Type Severity Reaction Status Date / Time aspartame Allergy Severe Shuts Down Verified 09/09/23 21:01 Nervous System PFSH PFSH Medical History (normal spontaneous vaginal delivery) ?O80 - Encounter for full-term uncomplicated delivery (ICD-10) Positive GBS test ?B95.1 - Streptococcus, group B, as the cause of diseases classified elsewhere (ICD-10) Gestational diabetes ?O24.419 - Gestational diabetes mellitus in , unspecified control (ICD-10) History of abnormal cervical Pap smear ?Z87.42 - Personal history of other diseases of the female genital tract (ICD-10) History of gestational diabetes ?Z86.32 - Personal history of gestational diabetes (ICD-10) History of delivery ?Z87.51 - Personal history of pre-term labor (ICD-10) History of vaginal delivery Active asthma ?J45.909 - Unspecified asthma, uncomplicated (ICD-10) Surgical History History of wisdom tooth extraction ?K08.409 - Partial loss of teeth, unspecified cause, unspecified class (ICD- 10) History of colposcopy (04/22/09) ?Z98.890 - Other specified postprocedural states (ICD-10) Family History Other Breast cancer Diabetes High blood pressure Social History What is your current living situation?: I presently have a place to live Problems where you live: no known problems In the past 12 months, utilities in danger of being shut off: no In past 12 months, lack of transportation kept you from medical appts, meetings, work, or getting things needed for daily living: no In the past 12 mos, have been you worried that your food would run out before you had money to buy more?: never true In the past 12 mos, the food you bought just didn't last and you didn't have money to buy more?: never true Smoking Status: Former smoker What tobacco products do you use: cigarettes Smoking quit date/years: <= 15 years ago Do you use any of these nicotine containing products: None Second hand tobacco smoke exposure: No How often do you have a drink containing alcohol: never How often do you have six or more drinks on one occasion: Never AUDIT-C Alcohol total score: 0 Non-prescribed substance use: denies use How often does anyone, including family, friends and others, physically hurt you : never How often does anyone, including family, friends and others, insult or talk down to you: never How often does anyone, including family, friends and others, threaten you with harm: never How often does anyone, including family, friends and others, scream or curse at you: never service: No Exam Const: Vital Signs, click to edit/add: Vital Signs - 24 hr 11/11/24 01:37 Temperature 99.6 F Pulse Rate [Pulse Oximeter] 130 H Respiratory Rate 18 Blood Pressure [Ri ght Upper Arm] 135/84 Pulse Oximetry 95 Oxygen Delivery Me thod Room Air Documenting provider has reviewed patient's vital signs: yes Common normals: no apparent distress General appearance: cooperative HENMT: Common normals: normocephalic Head and scalp: normocephalic Other: Lips acyanotic, moist membranes. Mild erythema to pharyngeal arches with no exudate. Nose congested with clear mucus rhinorrhea. Eye: Common normals: conjunctivae normal General eye: normal appearance of both eyes Conjunctiva: conjunctiva(e) normal Neck & C-Spine: Common normals: full ROM General: normal visual inspection Other: Mild anterior cervical and submandibular lymphadenopathy Resp: Common normals: normal respiratory effort, no use of accessory muscles and clear to auscultation bilaterally Effort & inspection: able to speak in complete sentences Auscultation: clear to auscultation bilaterally Cardio: Common normals: regular rate, regular rhythm, S1 normal heart sound, S2 normal heart sound and no murmurs Rate: regular rate Rhythm: regular rhythm Heart sounds: S1 normal and S2 normal Psych: Attention/concentration: attention grossly intact Insight: fair Judgement: fair Skin: Common normals: no rashes or lesions noted General skin exam: no rashes or lesions noted Course Course ED Course: 33-year-old female with sore throat nasal congestion, suspect viral sinusitis, upper respiratory infection, possibly strep pharyngitis or other viral pharyngitis. Viral and strep swabs ordered. Declines p.r.n. medication at this time. Reevaluation(s) Reevaluation #1: Strep positive. Will start amoxicillin 1 g b.i.d. times 10 days. First dose in ED, remainder sent to [facility]. Work note given for today. Return to work in 24 hours, aqap-lyw-meyiyup Tylenol and ibuprofen encourage, written instructions provided, primary care follow-up if not improving in 2 weeks. Vital Signs Vital signs: Initial Vital Signs Temperature 99.6 F 11/11/24 01:37 Temperature Source Temporal Artery Scan 11/11/24 01:37 Pulse Rate 130 H 11/11/24 01:37 Respiratory Rate 18 11/11/24 01:37 Blood Pressure 135/84 11/11/24 01:37 Blood Pressure Mean 101 11/11/24 01:37 Blood Pressure Position Sitting 11/11/24 01:37 Pulse Oximetry 95 11/11/24 01:37 Oxygen Delivery Method Room Air 11/11/24 01:37 Vital Signs Temperature 99.6 F 11/11/24 01:37 Pulse Rate 130 H 11/11/24 01:37 Respiratory Rate 18 11/11/24 01:37 Blood Pressure 135/84 11/11/24 01:37 Pulse Oximetry 95 11/11/24 01:37 Oxygen Delivery Method Room Air 11/11/24 01:37 Temperature 99.6 F 11/11/24 01:37 Pulse Rate 130 H 11/11/24 01:37 Respiratory Rate 18 11/11/24 01:37 Blood Pressure 135/84 11/11/24 01:37 Pulse Oximetry 95 11/11/24 01:37 Oxygen Delivery Method Room Air 11/11/24 01:37 Medical Decision Making Lab Data Lab results reviewed: Yes I reviewed the patient's lab results Labs: Lab Results 11/11/24 Range/Units 01:42 Group A Strep DNA DETECTED A (Not Detectd) Discharge Plan Discharge Clinical Impression: Acute streptococcal pharyngitis Patient Disposition: Home, Self-Care Condition: Stable Instructions: Strep Throat (DC) Additional Instructions: As we discussed, there are signs of some sinus congestion on your exam, but is not dangerous. Her swabs are positive for strep throat. You will start amoxicillin 1000 mg twice daily for 10 days. It is okay to continue the decongestants, Tylenol and ibuprofen to help with the sinus congestion. If your symptoms are not improving after 2 weeks, you should be re-evaluated in a primary care clinic. Emergency department should be reserved for severe shortness of breath, inability to swallow or signs of severe illness. You are cleared to return to work on 11/12. Activity Level: No Restrictions Discharge Diet: Regular Prescriptions: New amoxicillin 500 mg capsule 1,000 mg PO Q12H Qty: 38 0RF No Action PNV cmb#95-ferrous fumarate-FA [] 28 mg iron- 800 mcg tablet 1 tab PO DAILY albuterol 90 mcg/actuation aerosol 1 mcg inhalation .2 puff PRN acetaminophen 500 mg Tablet 1,000 mg PO Q6H PRNQty: 40 0RF ibuprofen 600 mg Tablet 600 mg PO Q6H PRNQty: 40 0RF oxycodone 5 mg Tablet 5 mg PO Q4H PRN (Reason: 4 OR GREATER ON PAIN SCALE) Qty: 10 0RF Follow Up/Referrals: Simba Black MD [Primary Care Provider] - Stand Alone Forms: [employer] Info Instructions
[2024-11-11 02:27] LABS: PCR FLU A Negative PCR FLU A (Negative); PCR FLU B Negative PCR FLU B (Negative); PCR RSV Negative PCR RSV (Negative); SARS PCR* Negative SARS-CoV-2 (Negative)
--- OUTSIDE RECORDS SUMMARY | 2024-11-11 02:27 | XMS_ITS | Encounter Summary ---
Author Organization [place] Address [address] [place] [address]. [place] [address] Care Team Providers Care Mobile Product Manager Name Role Phone Unavailable Primary Care Provider Unavailabl e Encounter Details Date Type Department Care Team (Late st Contact Info) Description 10/28/2008 10:13 AM [facility] in [address] [phone] Stacey Nash MD [facility] [place] [address] Social History Tobacco Use Types Packs/Day Years Used Date Smoking Tobacco: Never Alcohol Use Standard Drinks/Week Comments No 0 (1 standard drink = 0.6 oz pur e alcohol) Comments Unknown Sex and Gender Information Value Date Recorded Sex Assigned at Not on file 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
--- OUTSIDE RECORDS SUMMARY | 2024-11-11 02:27 | XMS_ITS | Encounter Summary ---
Author Organization [facility] Address [address] [place] [address]. [place] [address] Care Team Providers Care Checker Cashier Name Role Phone No Ref-Primary, Physician Primary Care Provider Encounter Details Date Type Department Care Team (Late st Contact Info) Description 02/21/2009 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
--- OUTSIDE RECORDS SUMMARY | 2024-11-11 02:27 | XMS_ITS | Clinical Summary ---
Author Organization [facility] Address [address] [place] [address] Care Team Providers Care Photovoltaic Installer Name Role Phone Simba Black MD Primary Care Provider [phone] Petra Hernandez MD Unavailable [phone] Allergies Active Allergy Reactions Criticality Noted Date [...] I just received a call from the [facility] Child Protection insurance case manager. She did not give details other than when the patient delivers, we need to call the [facility] Crisis line [phone]. We can call 14/04, 7 days a [...] Current 4 02/22/09 38w1d M Vag Y BYARON 3 10/06/07 36w4d M Vag Y ND [...] (from 06/04/17 to present) Problem Noted Resolved [facility] consult: 17P 08/25/2017 by Radha Cleveland RN No Overview Addendum 10/30/2017 3:20 PM by Jacqueline Sanchez RN [facility] CONSULTATION REASON FOR CONSULT: Weekly 17p injections [...] ultrasounds/testing. SPECIALISTS/PHONE: GREGOR: CARE COORDINATION: GENETICS: 07/31/17 Whitney PROCEDURES: PERTINENT LABS: 06/04/17: TP: negative, Hgb [...] delivery in second trimester, antepartum 08/28/2017 07/15/2023 [facility] consult: 17P 08/25/2017 Overview (01/05/2018): [facility] CONSULTATION REASON FOR CONSULT: Weekly 17p injections [...] ultrasounds/testing. SPECIALISTS/PHONE: GREGOR: CARE COORDINATION: GENETICS: 07/31/17 Whitney PROCEDURES: PERTINENT LABS: 06/04/17: TP: negative, Hgb A1C: 5.0, O positive, Hgb 13.5 PERTINENT MEDS: PLAN OF CARE: 08/28/17 per [facility] Weekly 17OHP until 36 weeks and every [...] Mother Heart Disease Other cousin-paternal Great uncle --[place]<50 yrs. 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 Gender Identity Not on file Sexual Orientation [...] Y Livin g 7 9 Andrzej felto [facility] Delivery Location:[facility] 2007 36w 0d 8h 00m/ 3.18 kg (7 lb) M Vag Y Neona ivy Demis e Rene las Complications:None Living Status Comments: at 18 months of age Delivery Location:[place], [place] 2008 Term 38w 1d 3.49 kg (7 lb 11 oz) M Vag Y Livin g 8 9 Fito ROLLINS, ANIYA Mosquera Complications:None Delivery Location:[facility] ([facility]) Comments:Anemia 2017 Term VAGINA [...] (222 lb 9.6 oz) 10/28/2023 3:30 PM [employer] 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 Height 159.4 cm (5' 2.76) 08/26/2023 11:[address] Body Mass Index 39.74 08/26/2023 11:46 AM [employer] 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 Plan of Treatment Health Maintenance Due Date [...] 07/01/2033 07/01/2023, 10/24, 06/29/2010 (Completed outside of [facility]), Additional history exists HIV for age 15-65 [...] supervision of other normal in first trimester LEAD RADIATION THERAPIST THIN PREP PAP SCREEN IMAGED Routine 01/12/2021 9:12 AM CDT Pap smear for cervical cancer screening from Last 3 Months or Most Recently Relevant to Health Maintenance Results * LC HCV ANTIBODY RFX TO QUANT PCR (01/21/2023 2:45 PM CDT) Pathologist [facility] HCV Ab Non Reactive Non Reactive 01/23/2023 2:08 PM CDT [facility] ([facility]) Blood BLOOD SPECIMEN / Unknown Venipuncture / Unknown 01/21/2023 2:45 PM CDT 01/21/2023 2:51 PM CDT Narrative [facility] ([facility]) - 01/23/2023 2:08 PM CDT Performed at: [address] [place] [id number] Rack Worker: Houston Muse MD, Phone: [phone] Petra Hernandez MD LABORATORY Final Resul t [facility] ([facility]) [address] [place] [address], * LC HIV-1/O/2, 4TH GENERATION (01/21/2023 2:45 PM CDT) Pathologist [facility] HIV Scr 4th Gen Non Reactive Non Reactive 01/23/2023 2:09 PM CDT [facility] ([facility]) Comment: HIV Negative HIV-1/HIV-2 antibodies and HIV-1 p24 antigen were NOT detected. There is no laboratory evidence of HIV infection. Blood BLOOD SPECIMEN / Unknown Venipuncture / Unknown 01/21/2023 2:45 PM CDT 01/21/2023 2:51 PM CDT [facility] ([facility]) - 01/23/2023 2:09 PM CDT Performed at: [facility] [place], [place] [id number] Rack Worker: Houston Muse MD, Phone: [phone] us Petra Hernandez MD LABORATORY Final Resul t [facility] ([facility]) [address] [place] [address], * LEAD RADIATION THERAPIST THIN PREP PAP SCREEN IMAGED (01/12/2021 9:12 AM CDT) Case Report Gynecologic Cytology Report Case: [id number] Authorizing Provider: Simba Black MD Collected: 01/12/2021 0912 Ordering Location: [facility] Received: 01/12/2021 0922 Clinic First Screen: [place] Specimen: LEAD RADIATION THERAPIST ThinPrep Vial Screening, Cervical 01/23/2021 1:50 PM CDT [facility]- ENTRAL LABORATORY INTERPRETATION/ RESULT NEGATIVE FOR INTRAEPITHELIAL LESION OR MALIGNANCY (NIL) (none) 01/23/2021 1:50 PM CDT [facility] IMEN ADEQUACY Satisfactory for evaluation Endocervical component present 01/23/2021 1:50 PM CDT [facility] HPV REQUEST HPV and PAP 01/23/2021 1:50 PM CDT [employer] LABORATORY-C ENTRAL LABORATORY Date of LMP unknown 01/23/2021 1:50 PM CDT [facility] EN[facility] LAB[facility] Last Pap Date 05/04/18 01/23/2021 1:50 PM CDT [facility] ENTRAL LABORATORY Last Pap Result NIL 1:50 PM CDT [employer] [facility] ENTRAL LABORATORY Abnormal Pap or [place] Bx in last 5 years No 01/23/2021 1:50 PM CDT [facility] ENTRAL LABORATORY Menstrual Status Hormonally Suppressed 01/23/2021 1:50 PM CDT [facility]AL LAB[facility]ORY [place] Bx Done Today No 01/23/2021 1:50 PM CDT [facility] ENTRAL LAB[facility]AT[facility] Additional Information None given 01/23/2021 1:50 PM CDT [facility] Comment: Cytology is screened at [facility] - [address], [place] [address] and [facility] - [address] [place] [address], [place] [address] and [facility] - [address] [place] [address] Interpreted at [facility] - [address] [place] [address], [place] [address] Automated Review Successful 01/23/2021 1:50 PM CDT [facility] Comment:Specimen processed s uccessfully by automated barrel centerer device, ThinPrep Imaging System, [employer] ANCILLARY TESTING LEAD RADIATION THERAPIST HPV Ordered, Please see separate report 01/23/2021 1:50 PM CDT [facility] Note The pap test is a [...] and malignant lesions. 01/23/2021 1:50 PM CDT [facility] Other (Cervical) Non-Blood / Unknown 01/12/2021 9:12 AM CDT 01/12/2021 9:22 AM CDT us Simba Black MD PATHOLOGY/CYTOLOGY Final R esult [facility] [address] [place] [address], [place] from Last 3 Months or Most Recently Relevant to Health Maintenance Insurance [facility] Advance Directives * Full Code (Latest Code [...] 8:54 PM 12/02/2006 12:32 AM Care Teams Photovoltaic Installer Relationship Specialty Start Date End Date Simba Black MD [address] [place] [address] PCP - General Family Practice 09/16/17 Petra Hernandez MD [address] [place] [address] Family Practice 01/21/23
--- OUTSIDE RECORDS SUMMARY | 2024-11-11 02:28 | XMS_ITS | Encounter Summary ---
Author Organization [place] Address [address] [place] [address]. [place] [address] Care Team Providers Care Cushion Cover Inspector Name Role Phone Unavailable Primary Care Provider Unavailabl e Encounter Details Date Type Department Care Team (Late st Contact Info) Description 10/07/2008 4:27 PM [facility] in [facility] [address] [place] [address] [phone] Cecilia Pitts NP [address] [place], [place] [id number] Social History Tobacco Use Types Packs/Day Years Used Date Smoking Tobacco: Never Alcohol Use Standard Drinks/Week Comments No 0 (1 standard drink = 0.6 oz pur e alcohol) Comments Unknown Sex and Gender Information Value Date Recorded Sex Assigned at Not on file 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
--- OUTSIDE RECORDS SUMMARY | 2024-11-11 02:28 | XMS_ITS | Clinical Summary ---
Author Organization [facility] Address [address] [place] [address]. 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 Gender Identity Not on file Sexual Orientation [...] lb 6.4 oz) 09/17/2017 2:39 A M OTORHINOLARYNGOLOGIST Height 157.5 cm (5' 2) 09/17/2017 2:39 AM OTORHINOLARYNGOLOGIST Body Mass Index 38.67 09/17/2017 2:39 AM OTORHINOLARYNGOLOGIST Plan of Treatment Health Maintenance Due Date [...] THIN LAYER SCREEN Routine 09/07/2008 12:00 AM OTORHINOLARYNGOLOGIST Care from Last 3 Months or Most Recently Relevant to Health Maintenance Results * A THIN LAYER PAP SCREEN (09/07/2008 12:00 AM OTORHINOLARYNGOLOGIST) PAP CK Perla Report Patient Name: SHAWANDA ROMERO MR#: [id number] Specimen #: [id number] Collected: 09/07/2008 Received: 09/08/2008 Reported: 09/09/2008 11:12 Ordering Phy(s): RENÉ DUPREE SPECIMEN/STAIN PROCESS: Pap thin layer prep screening ([facility]) Pap-Cyto x 1, Reflex HPV x 1 SOURCE: Cervical, endocervical Pap thin layer prep screening ([facility]) SPECIMEN ADEQUACY: Satisfactory for evaluation. -Transformation zone component present. CYTOLOGIC INTERPRETATION: Negative for Intraepithelial Lesion or Malignancy Electronically signed out by: ASHLEY Tolbert (ASCP) Processed at [facility], screened at [facility] CLINICAL HISTORY: LMP: no lmp recorded , TESTING LAB LOCATION: [address] [place] [address] COLLECTION SITE: Client: [facility] Location: [facility] (W) [facility] 09/07/2008 09/08/2008 8:2 9 AM OTORHINOLARYNGOLOGIST us René Dupree MD LABORATORY Final Re sult [facility] from Last 3 Months or Most Recently Relevant to Health Maintenance Advance Directives For more information, please contact: [phone] * Full Code (Latest Code Status on File) Date Activated Date Inactivated Comments 09/18/2017 12:21 PM 02/08/2023 12:50 AM * Full Code Date Activated Date Inactivated Comments 09/17/2017 2:44 AM 09/18/2017 12:21 PM Care Teams Paper Cutter Operator Relationship Specialty Start Date End Date No Ref-Primary, Physician PCP - General 09/16/17
--- OUTSIDE RECORDS SUMMARY | 2024-11-11 02:28 | XMS_ITS | Encounter Summary ---
Author Organization [place] Address [address] [place] [address]. [place] [address] Care Team Providers Care Foundry Equipment Mechanic Name Role Phone Unavailable Primary Care Provider Unavailabl e Encounter Details Date Type Department Care Team (Late st Contact Info) Description 02/21/2009 1:58 PM CDT [facility] [address] [place] [address] [phone] Dorota [place] [phone] Social History Tobacco Use Types Packs/Day Years Used Date Smoking Tobacco: Never Alcohol Use Standard Drinks/Week Comments No 0 (1 standard drink = 0.6 oz pur e alcohol) Comments Unknown Sex and Gender Information Value Date Recorded Sex Assigned at Not on file 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
--- OUTSIDE RECORDS SUMMARY | 2024-11-11 02:28 | XMS_ITS | Encounter Summary ---
Author Organization [facility] Address [address] [place] [address]. [place] [address] Care Team Providers Care Specialty Sales Consultant Name Role Phone Unavailable Primary Care Provider Unavailabl e Encounter Details Date Type Department Care Team (Late st Contact Info) Description 09/28/2008 12:23 PM [facility] in [facility] [address] [place] [address] [phone] Marbella Dupree MD [facility] [address] [place] [address] Social History Tobacco Use Types Packs/Day Years Used Date Smoking Tobacco: Never Alcohol Use Standard Drinks/Week Comments No 0 (1 standard drink = 0.6 oz pur e alcohol) Comments Unknown Sex and Gender Information Value Date Recorded Sex Assigned at Not on file Legal 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
--- OUTSIDE RECORDS SUMMARY | 2024-11-11 02:28 | XMS_ITS | Encounter Summary ---
Author Organization [facility] Address [address] [place] [address]. [place] [address] Care Team Providers Care Precision Printing Worker Name Role Phone Unavailable Primary Care Provider Unavailabl e Encounter Details Date Type Department Care Team (Late st Contact Info) Description 09/04/2008 4:57 PM [facility] in [address] [phone] Amaury Jose MD [address] [place] [phone] Social History Tobacco Use Types Packs/Day Years Used Date Smoking Tobacco: Never Alcohol Use Standard Drinks/Week Comments No 0 (1 standard drink = 0.6 oz pur e alcohol) Comments Unknown Sex and Gender Information Value Date Recorded Sex Assigned at Not on file 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
[2024-11-11] MEDS: AMOXICILLIN 250 MG CAPSULE 1000 MG PO (02:29)
[2024-11-11 02:41] VITALS: BP 122/74; PULSE 115; RESP 18; TEMP 37.6; O2SAT 95
[2024-11-11 02:42] VITALS: BP 122/74; PULSE 115; RESP 18; TEMP 37.6
== END 2024-11-11 02:42 | disposition home or self-care (01) ==
PROVIDERS: Emergency Provider Family Medicine; PCP Surgery
DX: J02.0 Streptococcal pharyngitis (principal)
CPT/HCPCS: 87631; 87651; 99283; A9270